=== PATIENT | female | born 1935 | race Caucasian/White ===

== ENCOUNTER 2016-06-08 09:02 | Outpatient (CLI) | payer MEDICARE | END 2016-06-08 09:03 | disposition home or self-care (01) | DX: I10 Essential (primary) hypertension (principal); E78.5 Hyperlipidemia, unspecified; E03.9 Hypothyroidism, unspecified; D64.9 Anemia, unspecified ==

== ENCOUNTER 2016-11-05 09:57 | Outpatient (CLI) | payer MEDICARE ==
[2016-11-05 18:30] LABS: CHOL/HDL RATIO 3.4 (<4.4); CHOLESTEROL 222 mg/dL; HDL CHOLESTEROL 65 mg/dL; LDL/HDL RATIO 2.3 (<4.4); TRIGLYCERIDES 47 mg/dL; VLDL CHOLESTEROL 9 mg/dL
== END 2016-11-05 09:58 | disposition home or self-care (01) ==
LOC: LAB.F 09:57
PROVIDERS: ATTEND Family Medicine
DX: E78.5 Hyperlipidemia, unspecified (principal)
CPT/HCPCS: 36415; 80061

== ENCOUNTER 2016-11-11 11:02 | Outpatient (CLI) | payer MEDICARE ==
--- NOTE | 2016-11-12 12:50 | Mammography Report ---
DIGITAL SCREENING MAMMOGRAM: 11/11/2016 CLINICAL INDICATION: A 81-year-old with history of late childbearing for screening. COMPARISON: 07/2014, 06/2012, 06/2011, 02/2010, 02/2009, 12/2007, 12/2006 TECHNIQUE: Routine CC and MLO projections were obtained of the breasts. FINDINGS: The breasts again demonstrate heterogeneously dense fibroglandular parenchyma bilaterally. Coarse, typically benign calcifications are present. No suspicious masses, clustered microcalcific ations, or regions of architectural distortion are identified. IMPRESSION: BENIGN FINDINGS. RECOMMENDATION: Routine annual screening unless otherwise clinically indicated. BIRADS CATEGORY 2 - BENIGN FINDINGS. STANDARD QUALIFYING STATEMENTS 1. This examination was reviewed with the aid of Computer-Aided Detection (CAD). 2. A negative or benign imaging report should not delay biopsy if clinically suspicious findings are present. Consider surgical consultation if warranted. More than 5% of cancers are not identified by i maging. 3. Dense breasts may obscure an underlying neoplasm. JOB #: [id number] EXT JOB #:[id number]
== END 2016-11-11 11:03 | disposition home or self-care (01) ==
LOC: DI.S 11:02
PROVIDERS: ATTEND Family Medicine
DX: Z12.31 Encounter for screening mammogram for malignant neoplasm of breast (principal)
CPT/HCPCS: 77067

== ENCOUNTER 2016-12-01 10:11 | Outpatient (CLI) | payer MEDICARE ==
--- NOTE | 2016-12-02 13:55 | DEXA Report ---
DEXA BONE MINERAL DENSITY SCAN: 12/02/2016 CLINICAL HISTORY: A 81-year-old postmenopausal female. TECHNIQUE: Dual energy x-ray absorptiometry (DXA) was performed on a [employer] system. Regions measured are the AP spine, femoral neck, and, if needed, forearm. COMPARISON: None. In accordance with the International Society for Clinical Densitometry (ISCD) guidelines, data from previous exams may be reanalyzed using current recommendations and techniques. This is done to allow a more accurate basis for comparison with the current study. FINDINGS: The data for the lumbar spine is as follows: REGION BMD (g/cm/cm) T-SCORE Z-SCORE L1 1.085 -0.4 1.8 L2 1.149 -0.4 1.8 L3 1.052 -1.2 0.9 L4 0.906 -2.4 -0.3 TOTAL 1.031 -1.2 0.9 NOTE: All evaluable vertebrae are used for classification. The data for the hip is as follows: REGION BMD (g/cm/cm) T-SCORE Z-SCORE Neck 0.666 -2.7 -0.3 TOTAL 0.654 -2.8 -0.6 NOTE: The femoral neck or total proximal femur, whichever is lowest, is used for classification. IMPRESSION: L1 THROUGH L4 BONE MINERAL DENSITY IS 1.031 GRAMS/CM2 FOR A T-SCORE OF -1.2. THIS IS COMPATIBLE WITH OSTEOPENIA ACCORDING TO THE WORLD HEALTH ORGANIZATION GUIDELINES. LEFT HIP TOTAL BONE MINERAL DENSITY IS 0.654 GRAMS/CM2 FOR A T-SCORE OF -2.8. THIS IS COMPATIBLE WITH OSTEOPOROSIS ACCORDING TO THE WORLD HEALTH ORGANIZATION GUIDELINES. LEFT FEMORAL NECK BONE MINERAL DENSITY IS 0.666 GRAMS/CM2 FOR A T-SCORE OF - 2.7. THIS IS COMPATIBLE WITH OSTEOPOROSIS ACCORDING TO THE WORLD HEALTH ORGANIZATION GUIDELINES. THE WHO CLASSIFICATION BASED ON THE INTERNATIONAL REFERENCE STANDARD IS OSTEOPOROSIS. THE PATIENT HAS SIGNIFICANT INCREASED FRACTURE RISK. RECOMMENDATION: Patients with diagnosis of osteoporosis or osteopenia should have regular bone mineral density assessment. For those eligible for Medicare, routine testing is allowed once every 2 years. Testing frequency can be increased for patients who have rapidly progressing disease or for those who are receiving medical therapy to restore bone mass. COMMENT: World Health Organization (WHO) definitions for osteoporosis and osteopenia: NORMAL BMD: T-score at -1.0 or higher, fracture risk is low. OSTEOPENIA BMD: T-score between -1.0 and -2.5, fracture risk is increased. OSTEOPOROSIS BMD: T-score at -2.5 or lower, fracture risk high. National Osteoporosis Foundation recommends: 1. Obtain adequate dietary calcium (at least 1200 mg per day) and vitamin D (400 -800 international units per day). 2. Participate, as appropriate, in regular weightbearing and muscle- strengthening exercise. 3. Avoid tobacco use and reduce alcohol and caffeine intake. 4. For more detailed information see the website at www.NOF.org. MTDD
== END 2016-12-01 10:12 | disposition home or self-care (01) ==
LOC: DI 10:11
PROVIDERS: ATTEND Family Medicine
DX: M81.0 Age-related osteoporosis without current pathological fracture (principal)
CPT/HCPCS: 77080

== ENCOUNTER 2017-01-11 14:04 | Outpatient (CLI) | payer MEDICARE ==
--- NOTE | 2017-01-11 15:45 | XRAY Report ---
BILATERAL HIPS AND PELVIS: 01/11/2017 CLINICAL INDICATION: Left worse than right pain. FINDINGS: Frontal view of the hips and pelvis and frogleg lateral views of the hips are compared to previous films of 09/04/2013. Severe right and mild left hip osteoarthritis is present. There is no evidence of acute fracture or d islocation. No radiopaque foreign body is seen in the soft tissues. IMPRESSION: SEVERE RIGHT AND MILD LEFT HIP OSTEOARTHRITIS. JOB #: [id number] EXT JOB #:[id number]
[2017-01-11 18:38] LABS: CHOL/HDL RATIO 3.3 (<4.4); CHOLESTEROL 219 mg/dL; HDL CHOLESTEROL 67 mg/dL; TRIGLYCERIDES 105 mg/dL; VLDL CHOLESTEROL 21 mg/dL
== END 2017-01-11 14:05 | disposition home or self-care (01) ==
LOC: DI.S 14:04
PROVIDERS: ATTEND Family Medicine
DX: M16.0 Bilateral primary osteoarthritis of hip (principal)
CPT/HCPCS: 36415; 73521; 80061; 84443

== ENCOUNTER 2017-08-13 10:48 | Outpatient (CLI) | payer MEDICARE ==
[2017-08-13 17:51] LABS: BILIRUBIN,URINE NEGATIVE (NEGATIVE); GLUCOSE, URINE (UA) NEGATIVE (NEGATIVE); KETONES,URINE (UA) NEGATIVE (NEGATIVE); LEUKOCYTE ESTERASE, URINE NEGATIVE (NEGATIVE); NITRITE,URINE NEGATIVE (NEGATIVE); OCCULT BLOOD,URINE NEGATIVE (NEGATIVE); PROTEIN,URINE NEGATIVE (NEGATIVE); UROBILINOGEN,URINE 0.2 (NORMAL) E.U./dL (NORMAL)
[2017-08-13 17:59] LABS: CLARITY,URINE CLEAR (CLEAR)
[2017-08-13 18:01] LABS: BASOPHILS % (AUTO) 1.7 %; EOSINOPHILS % (AUTO) 4.4 %; LYMPHOCYTES % (AUTO) 17.9 %; MEAN CORPUSCULAR HEMOGLOBIN 19.8 pg (27.0-31.0); MEAN CORPUSCULAR HGB CONC 29.1 g/dL (32.0-36.0); MEAN CORPUSCULAR VOLUME 67.9 fL (81.0-99.0); MEAN PLATELET VOLUME 6.9 fL (7.9-10.8); MONOCYTES % (AUTO) 8.6 %; NEUTROPHILS % (AUTO) 67.4 %; PLT - PLATELET COUNT 424 10^3/uL (130-450); RED BLOOD COUNT 2.68 10^6/uL (4.20-5.40); RED CELL DISTRIBUTION WIDTH 19.2 % (12.0-15.0); WHITE BLOOD COUNT 5.2 x10^3/uL (4.8-10.8)
[2017-08-13 18:09] LABS: BACTERIA,URINE Rare /HPF (None Seen); HGB - HEMOGLOBIN 5.3 g/dL (12.0-16.0); MUCUS,URINE Few Strands; RBC,URINE 0-5 /HPF (0-5); SQUAMOUS EPITHELIAL CELL,UR FEW Squamous (<= Few)
[2017-08-13 18:10] LABS: ABNORMAL LYMPHS % (MANUAL) 0 %
[2017-08-13 18:30] LABS: ALBUMIN 3.9 g/dL (3.2-5.5); ALBUMIN/GLOBULIN RATIO 1.4 (1.0-2.2); ALKALINE PHOSPHATASE 61 IU/L (42-121); ALT ALANINE AMINOTRANSFERASE 14 IU/L (10-60); AST ASPARTATE AMINOTRANSFERASE 20 IU/L (10-42); BILIRUBIN,TOTAL 0.3 mg/dL (0.2-1.0); BUN - BLOOD UREA NITROGEN 23 mg/dL (6-20); CALCIUM 9.1 mg/dL (8.5-10.3); CARBON DIOXIDE - CO2 27 mmol/L (21-32); CHLORIDE 104 mmol/L (101-111); CHOL/HDL RATIO 3.1 (<4.4); CHOLESTEROL 181 mg/dL; CREATININE 0.8 mg/dL (0.4-1.0); GFR - MDRD 69 (>89); GLUCOSE 94 mg/dL (70-100); HDL CHOLESTEROL 58 mg/dL; LDL CHOLESTEROL,CALCULATED 107 mg/dL; LDL/HDL RATIO 1.8 (<4.4); SODIUM 137 mmol/L (135-145); TOTAL PROTEIN 6.7 g/dL (6.7-8.2); VLDL CHOLESTEROL 16 mg/dL
[2017-08-13 18:53] LABS: BAND NEUTROPHILS % (MANUAL) 2 %; BASOPHILS # (MANUAL) 0.1 10^3/uL (0-0.1); BASOPHILS % (MANUAL) 2 %; EOSINOPHILS # (MANUAL) 0.3 10^3/uL (0-0.7); LYMPHOCYTES # (MANUAL) 0.7 10^3/uL (1.5-3.5); LYMPHOCYTES % (MANUAL) 13 %; MONOCYTES # (MANUAL) 0.4 10^3/uL (0.0-1.0); NEUTROPHILS # (MANUAL) 3.7 10^3/uL (1.5-6.6); NEUTROPHILS % (MANUAL) 69 %
[2017-08-13 18:54] LABS: DIFFERENTIAL COMMENT MANUAL DIFFERENTIAL; PLATELET ESTIMATE, MANUAL NORMAL (130-450,000) (NORMAL); PLATELET MORPHOLOGY 1+ GIANT PLATELETS (NORMAL)
== END 2017-08-13 10:49 | disposition home or self-care (01) ==
LOC: LAB.F 10:48
PROVIDERS: ATTEND Family Medicine
DX: R53.83 Other fatigue (principal); D64.9 Anemia, unspecified; E03.9 Hypothyroidism, unspecified; I10 Essential (primary) hypertension; E78.5 Hyperlipidemia, unspecified
CPT/HCPCS: 36415; 80053; 80061; 81001; 83721; 84443; 85025

== ENCOUNTER 2017-08-13 19:10 | Inpatient (IN) | payer MEDICARE ==
[2017-08-13 19:48] LABS: MEAN CORPUSCULAR HEMOGLOBIN 19.4 pg (27.0-31.0); MEAN CORPUSCULAR HGB CONC 28.7 g/dL (32.0-36.0); MEAN CORPUSCULAR VOLUME 67.8 fL (81.0-99.0); MEAN PLATELET VOLUME 6.4 fL (7.9-10.8); RED BLOOD COUNT 2.72 10^6/uL (4.20-5.40); RED CELL DISTRIBUTION WIDTH 19.3 % (12.0-15.0); WHITE BLOOD COUNT 5.4 x10^3/uL (4.8-10.8)
[2017-08-13 19:51] LABS: HGB - HEMOGLOBIN 5.3 g/dL (12.0-16.0)
[2017-08-13 19:57] LABS: ALBUMIN 3.8 g/dL (3.2-5.5); ALBUMIN/GLOBULIN RATIO 1.3 (1.0-2.2); BILIRUBIN,TOTAL 0.3 mg/dL (0.2-1.0); CALCIUM 8.8 mg/dL (8.5-10.3); CREATININE 0.7 mg/dL (0.4-1.0); TOTAL PROTEIN 6.8 g/dL (6.7-8.2)
[2017-08-13 20:00] LABS: INR 1.1 (0.8-1.2); PT - PROTHROMBIN TIME 11.9 secs (9.9-12.6)
--- NOTE | 2017-08-13 20:30 | ED Physician Documentation ---
History of Present Illness - Stated complaint Stated Complaint: BLOOD ISSUES - Chief complaint Chief Complaint: Neuro - History obtained from History obtained from: Patient - History of Present Illness Timing: How many weeks ago (2-3) Pain level max: 0 Pain level now: 0 Improved by: rest Worsened by: exertion - Additonal information Additional information: c/o few weeks of generalized weakness, fatigue, lightheadedness. Saw PMD for this yesterday, had blood drawn today and was called tonight and advised to go to ED due to anemia. Review of Systems Constitutional: reports: Fatigue. denies: Fever, Chills, Sweats Eyes: reports: Reviewed and negative Ears: reports: Reviewed and negative Nose: reports: Reviewed and negative Throat: reports: Reviewed and negative Cardiac: reports: Reviewed and negative Respiratory: reports: Reviewed and negative GI: reports: Reviewed and negative. denies: Hematemesis, Bloody / black stool Skin: reports: Reviewed and negative Musculoskeletal: reports: Reviewed and negative Neurologic: reports: Generalized weakness. 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 - Present Medications Home Medications: Ambulatory Orders Medication Instructions Recorded Confirmed Calcium Carb/Magnesium Ox,Carb 2 tab PO DAILY 06/23/13 08/14/17 [Doroteo-Mag Tablet Chewable] Cholecalciferol (Vitamin D3) [D3 5,000 unit PO DAILY 06/23/13 08/14/17 Dots] Cyanocobalamin (Vitamin B-12) 500 mcg SL QAM 06/23/13 08/14/17 [Vitamin B-12] Multivitamin [Multi-Vitamin Daily] 3 tab PO QAM 06/23/13 08/14/17 [place]-3 Fatty Acids [[place]-3] 2,000 mg PO QAM 06/23/13 08/14/17 Resveratrol 100 mg PO QAM 06/23/13 08/14/17 Thyroid,Pork [Nature-Throid] 16.25 mg PO QAM 06/23/13 08/14/17 Ubidecarenone [Co Q-10] 10 mg PO DAILY 06/23/13 08/14/17 Ferrous Sulfate 325 mg PO DAILY #15 tablet 08/14/17 Lactobacillus Acidophilus 1 each PO DAILY 08/14/17 08/14/17 [Acidophilus] - Allergies Allergies/Adverse Reactions: Allergies Allergy/AdvReac Type Severity Reaction Status Date / Time No Known Drug Allergies Allergy Verified 08/13/17 19:20 - Social History Does the pt smoke?: No Smoking Status: Never smoker Does the pt drink ETOH?: Yes Does the pt have substance abuse?: No - POLST Patient has POLST: No PD ED PE NORMAL - Vitals Vital signs reviewed: Yes - General General: Alert and oriented X 3, No acute distress, Well developed/nourished - HEENT HEENT: PERRL, EOMI, Other (pale conjunctiva bilaterally) - Neck Neck: Supple, no meningeal sign - Cardiac Cardiac: RRR, No murmur, No gallop, No rub - Respiratory Respiratory: No respiratory distress, Clear bilaterally - Abdomen Abdomen: Soft, Non tender - Back Back: No CVA TTP - Derm Derm: Normal color, Warm and dry - Extremities Extremities: No edema - Neuro Neuro: Alert and oriented X 3 PD ED PE EXPANDED - Rectal Rectal: Heme Occult Neg - QC+, Hide And Skin Classer present Results - Vitals Vitals: Oxygen O2 Source Room air - Labs Labs: Laboratory Tests 08/13/17 08/13/17 08/13/17 19:30 19:30 19:30 WBC 5.4 RBC 2.72 L Hgb 5.3 L* Hct 18.4 L* MCV 67.8 L MCH 19.4 L MCHC 28.7 L RDW 19.3 H Plt Count 434 MPV 6.4 L PT 11.9 INR 1.1 APTT 24.6 L Sodium Potassium Chloride Carbon Dioxide Anion Gap BUN Creatinine Estimated GFR (MDRD) Glucose Calcium Iron TIBC % Saturation Transferrin Total Bilirubin AST ALT Alkaline Phosphatase Total Protein Albumin Globulin Albumin/Globulin Ratio Lipase Vitamin B12 Folate Blood Type B POSITIVE Antibody Screen NEGATIVE Crossmatch IS Only 08/13/17 08/13/17 08/13/17 19:30 19:30 19:30 WBC RBC Hgb Hct MCV MCH MCHC RDW Plt Count MPV PT INR APTT Sodium 136 Potassium 3.7 Chloride 103 Carbon Dioxide 27 Anion Gap 6.0 BUN 23 H Creatinine 0.7 Estimated GFR (MDRD) 81 L Glucose 117 H Calcium 8.8 Iron 8 L TIBC 553 H % Saturation 1 L Transferrin 395 H Total Bilirubin 0.3 AST 19 ALT 14 Alkaline Phosphatase 60 Total Protein 6.8 Albumin 3.8 Globulin 3.0 Albumin/Globulin Ratio 1.3 Lipase 65 H Vitamin B12 Folate Blood Type Cancelled Antibody Screen Cancelled Crossmatch IS Only See Detail 08/13/17 19:30 WBC RBC Hgb Hct MCV MCH MCHC RDW Plt Count MPV PT INR APTT Sodium Potassium Chloride Carbon Dioxide Anion Gap BUN Creatinine Estimated GFR (MDRD) Glucose Calcium Iron TIBC % Saturation Transferrin Total Bilirubin AST ALT Alkaline Phosphatase Total Protein Albumin Globulin Albumin/Globulin Ratio Lipase Vitamin B12 636 Folate 16.48 Blood Type Antibody Screen Crossmatch IS Only PD MEDICAL DECISION MAKING - ED course Complexity details: reviewed old records, reviewed results, re-evaluated patient , considered differential, d/w patient, d/w family ED course: symptomatic severe anemia, 2 units PRBC transfusion ordered and admitted to hospitalist service Departure - Departure Disposition: 66 [facility] DC/Xfer Clinical Impression: Anemia Condition: Stable Discharge Date/Time: 08/13/17 21:45
[2017-08-13] MEDS ORDERED: SODIUM CHLORIDE FLUSH 0.9% 10 ML SYRINGE IVP PRN (21:07)
[2017-08-13] MEDS ORDERED: TEMAZEPAM 15 MG CAPSULE PO PRN (21:16)
[2017-08-13] MEDS ORDERED: PROCHLORPERAZINE 10 MG/2 ML VIAL IVP PRN (21:16)
[2017-08-13] MEDS ORDERED: oxyCODONE 5 MG TABLET PO PRN (21:16)
[2017-08-13 22:07] LABS: % IRON SATURATION 1 % (20-50); IRON 8 ug/dL (28-170); TOTAL IRON BINDING CAPACITY 553 ug/dL (250-450); TRANSFERRIN 395 mg/dL (192-382)
[2017-08-13 22:26] LABS: FOLATE 16.48 ng/mL (5.90 - >24.8)
--- NOTE | 2017-08-13 22:51 | HISTORY & PHYSICAL EXAMINATION ---
Chief Complaint - Chief Complaint Chief Complaint: Generalized weakness History of Present Illness - Admitted From Admitted From:: home - History Obtained From Records Reviewed: yes History obtained from: Patient, ED physician Exam Limitations: none noted - History of Present Illness HPI Comment/Other: Mrs. Kari Hill is a very pleasant 82-year-old female with a history of feeling weak over the last several days. This continued until today when she came into the [facility] emergency department and was found to have hemoglobin of 5.3. The patient relates she had a similar episode about 4 years ago and was eventually found to have a healing gastric ulcer. At that time she also was guaiac negative and she is during this admission. The patient says that for years ago she was on iron supplements for a while after her hospitalization but stopped within a year. She will be admitted to a medical bed, transfuse 2 units and reassessed. We will also try to find the cause of her anemia. 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 - Substance History Use: Uses substance without health or social issues: Alcohol Abuse: Recurrent use of substance despite neg consequences: NONE Dependence: Experiences withdrawal or developed tolerances: NONE - POLST Patient has POLST: No POLST Status: DNR Meds/Allgy - Home Medications Home Medications: Ambulatory Orders Medication Instructions Recorded Confirmed Acute Viratex 0.5 dis.syr PO TID 06/23/13 06/23/13 Ascorbic Acid [Vitamin C] 100 mg PO QAM 06/23/13 06/23/13 Astaxanthin 4 mg PO DAILY 06/23/13 06/23/13 Calcium Carb/Magnesium Ox,Carb 1 tab PO BID 06/23/13 06/23/13 [Doroteo-Mag Tablet Chewable] Cholecalciferol (Vitamin D3) [D3 5,000 unit PO 06/23/13 06/23/13 Dots] Cranberry 2 PO BID 06/23/13 06/23/13 Cyanocobalamin (Vitamin B-12) 1 tab SL QAM 06/23/13 06/23/13 [Vitamin B-12] Ferrasorb 1 PO BID 06/23/13 06/23/13 Methylsulfonylmethane [MSM] 1,000 mg PO DAILY 06/23/13 06/23/13 Multivitamin [Multi-Vitamin Daily] 3 tab PO QAM 06/23/13 06/23/13 [place]arth[place]-3 Fatty Acids [Karthaus-3] 2 cap PO QAM 06/23/13 06/23/13 Phyto B 10 gm PO HS 06/23/13 06/23/13 [place] 1 PO BID 06/23/13 06/23/13 Resveratrol PO QAM 06/23/13 06/23/13 Saccharomyces Boulardii [Florastor] mg PO QAM 06/23/13 06/23/13 Thyroid,Pork [Nature-Throid] 32.5 mg PO QAM 06/23/13 06/23/13 Ubidecarenone [Co Q-10] mg PO DAILY 06/23/13 06/23/13 - Allergies Allergies/Adverse Reactions: Allergies Allergy/AdvReac Type Severity Reaction Status Date / Time No Known Drug Allergies Allergy Verified 08/13/17 19:20 Review of Systems - Constitutional Constitutional: reports: Fatigue, Malaise. denies: Fever, Chills, Weakness, Poor appetite - Eyes Eyes: denies: Pain, Irritation, Amaurosis, Blurred vision, Dipolpia - Ears, Nose & Throat Ears, Nose & Throat: denies: Ear pain, Hearing loss, Hearing aids, Tinnitus, Vertigo, Nasal pain, Nasal discharge, Nosebleeds - Cardiovascular Cariovascular: denies: Irregular heart rate, Palpitations, Chest pain, Edema - Respiratory Respiratory: reports: SOB with exertion. denies: Cough, Sputum production, Wheezing, Snoring, Hemoptysis, Orthopnea, SOB at rest - Gastrointestinal Gastrointestinal: denies: Abdominal pain, Abdominal distention, Constipation, Diarrhea, Change in bowel habits, Rectal bleeding, Black stools, Bloody stools, Nausea, Vomiting - Genitourinary Genitourinary: denies: Dysuria, Frequency, Urgency, Hematuria - Musculoskeletal Musculoskeletal: denies: Muscle pain, Back pain, Muscle aches, Stiffness - Integumentary Integumentary: denies: Rash, Pruritis, Lesions, Dryness - Neurological Neurological: denies: General weakness, Focal weakness, Headache, Dizziness - Psychiatric Psychiatric: denies: Depression, Anxiety, Suicidal, Delusions, Hallucinations, Homicidal - Endocrine Endocrine: denies: Polyuria, Polydypsia, Polyphagia - Hematologic/Lymphatic Hematologic/Lymphatic: denies: Anemia, Bruising, Petechiae, Blood clots, Lymphadenopathy - All Other Systems All Other Systems: reports: Reviewed and negative Exam - Vital Signs Reviewed Vital Signs: Yes Vital Signs: Vital Signs x48h Temp Pulse Pulse Resp BP BP Pulse Ox 08/13/17 21:55 36.6 C 81 20 159/63 H 100 08/13/17 21:44 36.4 C L 68 12 164/75 H 97 08/13/17 21:11 68 11 L 174/84 H 100 - Physical Exam General Appearance: positive: No acute distress, Alert Eyes Bilateral: positive: Normal inspection, PERRL, EOMI, No lid inflammation, Conjunctivae nml, No scleral icterus ENT: positive: ENT inspection nml, Pharynx nml, No signs of dehydration Neck: positive: Nml inspection, Thyroid nml, No JVD, Trachea midline. negative : Thyromegaly Respiratory: positive: Chest non-tender, No respiratory distress, Breath sounds nml. negative: Wheezes, Rales, Rhonchi Cardiovascular: positive: Regular rate & rhythm, No murmur, No gallop Peripheral Pulses: positive: 1+ Abdomen: positive: Non-tender, No organomegaly, Nml bowel sounds, No distention. negative: Guarding, Rebound Back: positive: Nml inspection. negative: CVA tenderness (R), CVA tenderness (L ) Skin: positive: Color nml, No rash, Warm, Dry. negative: Cyanosis Extremities: positive: Non-tender, Full ROM, Nml appearance, No pedal edema Neurologic/Psychiatric: positive: Oriented x3, CN's nml (2-12), Motor nml, Sensation nml, Mood/affect nml Conclusion/Plan - Problem List (1) Microcytic anemia Conclusion/Plan: The patient's anemia is severe and severely microcytic with hemoglobin of 5.3, hematocrit of 18.4, and an MCV of 67.8. The patient's red blood cells are so small that thalassemia must be considered however given her red blood cell count of 2.72 it is doubtful. I have ordered iron studies and folate level and B12 level which were ordered in the emergency department have come back normal. This is somewhat surprising as the patient's RDW is 19.3. We will admit her to a medical bed, transfuse her 2 units of packed red blood cells and recheck her hematocrit and hemoglobin levels. We will transfuse her up to 10 and try to find the cause of her severe anemia. During her previous bout of severe anemia she had a full workup and was found to be iron deficient. Guaiacs at that time were also negative. (2) Chronic back pain greater than 3 months duration Conclusion/Plan: Patient has responded very well to physical therapy, I will order physical therapy to evaluate and treat while she is inpatient. - Lab Results Lab results reviewed: Yes Fish Bones: 08/13/17 19:30 08/13/17 19:30 Core Measures - Anticipated LOS I expect patient to be DC'd or transferred within 96 hours.: Yes - DVT/VTE - Prophylaxis VTE/DVT Device ordered at admit?: Yes
[2017-08-14] MEDS: SODIUM CHLORIDE FLUSH 0.9% 10 ML SYRINGE IVP SCH ×2 (04:45→10:32)
[2017-08-14 07:27] LABS: HGB - HEMOGLOBIN 8.8 g/dL (12.0-16.0); MEAN CORPUSCULAR HEMOGLOBIN 23.7 pg (27.0-31.0); MEAN CORPUSCULAR HGB CONC 32.7 g/dL (32.0-36.0); MEAN CORPUSCULAR VOLUME 72.6 fL (81.0-99.0); MEAN PLATELET VOLUME 6.2 fL (7.9-10.8); RED BLOOD COUNT 3.69 10^6/uL (4.20-5.40); RED CELL DISTRIBUTION WIDTH 21.3 % (12.0-15.0); WHITE BLOOD COUNT 5.6 x10^3/uL (4.8-10.8)
[2017-08-14] MEDS ORDERED: FERROUS SULFATE 325 MG TABLET PO SCH ×2 (08:00→09:00)
[2017-08-14] MEDS ORDERED: cloNIDine 0.1 MG TABLET PO PRN (08:05)
[2017-08-14 08:48] LABS: THYROID STIMULATING HORMONE 2.67 uIU/mL (0.34-5.60)
[2017-08-14 08:50] LABS: FREE T4 (FREE THYROXINE) 0.67 ng/dL (0.58-1.64)
[2017-08-14] MEDS ORDERED: POLYETHYLENE GLYCOL 3350 17 GM PACKET PO SCH (09:00)
[2017-08-14] MEDS ORDERED: FAMOTIDINE 20 MG TABLET PO SCH (09:00)
[2017-08-14] MEDS ORDERED: FERRIC GLUCONATE 62.5 MG/5 ML VIAL IVP ONE (09:03)
[2017-08-14] MEDS ORDERED: FERRIC GLUCONATE 125 MG in SODIUM CHLORIDE 0.9% 100ML 100 ML IV ONE (10:00)
[2017-08-14] MEDS ORDERED: PANTOPRAZOLE 40 MG VIAL IVP SCH (14:00)
[2017-08-14 14:17] LABS: HGB - HEMOGLOBIN 9.3 g/dL (12.0-16.0)
--- NOTE | 2017-08-14 14:39 | Discharge Plan ---
Discharge Plan Disposition: Home, Self Care Condition: Stable Prescriptions: Ferrous Sulfate 325 mg PO DAILY #15 tablet Diet: Regular Activity Restrictions: Activity as Tolerated Shower Restrictions: No Weight Bearing: Full Weight Instruction Topics: Anemia Iron Deficiency Ch, Iron tablets capsules extended- release tablets Additional Instructions or Follow Up instructions: May follow up PCP in one week. Should symptoms return or worsen, may present to ER or call 911 for help. No Smoking: If you smoke, Please STOP! Call for help. Follow-up with: SERGE CANALES MD [Primary Care Provider] -
--- NOTE | 2017-08-14 14:45 | DISCHARGE SUMMARY ---
Discharge Summary Discharge Date: 08/14/17 Discharging Provider: [place] Primary Care Provider: Dr. Riggins Condition at Discharge: Stable Discharge Disposition: 01 Home, Self Care Discharge Facility Name: home - DIAGNOSES Admission Diagnoses: (1) Microcytic anemia/iron deficiency (2) Chronic back pain greater than 3 months duration Discharge Diagnoses with Status of Each Condition: (1) Microcytic anemia/iron deficiency pt was transfused two unit of blood. after transfusion. pt's HGB is continuing stable pt was found iron deficiency. pt was prescribed IVF of Ferrlecit. pt is prescribed ferrous sulf for d/c home and continue management by PCP pt's Guaiae test is negative for blood (2) Chronic back pain greater than 3 months duration stable, continue home meds The nurse did not report the last pt's BP measure, before d/c. - HPI History of Present Illness: refer from Dr. Huber's HPI on pt as the following: Mrs. Kari Hill is a very pleasant 82-year-old female with a history of feeling weak over the last several days. This continued until today when she came into the [facility] emergency department and was found to have hemoglobin of 5.3. The patient relates she had a similar episode about 4 years ago and was eventually found to have a healing gastric ulcer. At that time she also was guaiac negative and she is during this admission. The patient says that for years ago she was on iron supplements for a while after her hospitalization but stopped within a year. She will be admitted to a medical bed, transfuse 2 units and reassessed. We will also try to find the cause of her anemia. - ALLERGIES Allergies/Adverse Reactions: Allergies Allergy/AdvReac Type Severity Reaction Status Date / Time No Known Drug Allergies Allergy Verified 08/13/17 19:20 - MEDICATIONS Home Medications: Ambulatory Orders Medication Instructions Recorded Confirmed Calcium Carb/Magnesium Ox,Carb 2 tab PO DAILY 06/23/13 08/14/17 [Doroteo-Mag Tablet Chewable] Cholecalciferol (Vitamin D3) [D3 5,000 unit PO DAILY 06/23/13 08/14/17 Dots] Cyanocobalamin (Vitamin B-12) 500 mcg SL QAM 06/23/13 08/14/17 [Vitamin B-12] Multivitamin [Multi-Vitamin Daily] 3 tab PO QAM 06/23/13 08/14/17 [place]-3 Fatty Acids [Kennedy-3] 2,000 mg PO QAM 06/23/13 08/14/17 Resveratrol 100 mg PO QAM 06/23/13 08/14/17 Thyroid,Pork [Nature-Throid] 16.25 mg PO QAM 06/23/13 08/14/17 Ubidecarenone [Co Q-10] 10 mg PO DAILY 06/23/13 08/14/17 Ferrous Sulfate 325 mg PO DAILY #15 tablet 08/14/17 Lactobacillus Acidophilus 1 each PO DAILY 08/14/17 08/14/17 [Acidophilus] - PHYSICAL EXAM AT DISCHARGE General Appearance: positive: No acute distress, Alert. negative: Lethargic Eyes Bilateral: positive: Normal inspection, PERRL, No lid inflammation, Conjunctivae nml ENT: positive: ENT inspection nml, Pharynx nml, No signs of dehydration. negative: Purulent nasal drainage, Pharyngeal erythema, Oral lesions Neck: positive: Nml inspection, Thyroid nml, No JVD, Trachea midline. negative : Thyromegaly, Lymphadenopathy (R), Lymphadenopathy (L), Stiff neck, Carotid bruit, Swelling/bruising, Tracheal deviation Respiratory: positive: Chest non-tender, No respiratory distress, Breath sounds nml. negative: Wheezes, Rales, Rhonchi Cardiovascular: positive: Regular rate & rhythm, No murmur, No gallop. negative : Irregularly irregular, Extrasystoles, Tachycardia, Bradycardia, JVD present, Systolic murmur, Diastolic murmur Peripheral Pulses: positive: 2+ Abdomen: positive: Non-tender, No organomegaly, Nml bowel sounds, No distention. negative: Tenderness, Guarding, Rebound Back: positive: Nml inspection. negative: CVA tenderness (R), CVA tenderness (L ) Skin: positive: Color nml, No rash, Warm, Dry. negative: Cyanosis, Diaphoresis , Pallor Extremities: positive: Non-tender, Full ROM, Nml appearance. negative: Calf tenderness, Joint swelling, Stefany's sign/cords Neurologic/Psychiatric: positive: Oriented x3, Sensation nml, Mood/affect nml. negative: Weakness, Sensory loss, Facial droop, Slurred/abnml speech, Depressed mood/affect - LABS Result Diagrams: 08/14/17 14:03 08/13/17 19:30 - FOLLOW UP Follow Up: May see PCP in one week, follow up medication schedule. Should symptoms return or worsen, may present to ER or call 911 for help. - TIME SPENT Time Spent in Discharge (Minutes): 40
[2017-08-14 15:29] VITALS: BP 173/66
== END 2017-08-14 16:15 | disposition home or self-care (01) | DRG 812 ==
LOC: ED 19:10 → MS3 21:07
PROVIDERS: ADMIT Hospitalist; ATTEND Nurse Practitioner Gerontology
PROC: 30233N1 Transfusion of Nonautologous Red Blood Cells into Peripheral Vein, Percutaneous Approach (ICD-10-PCS; principal; 2017-08-13)
DX: D64.9 Anemia, unspecified (principal); D50.9 Iron deficiency anemia, unspecified; M54.9 Dorsalgia, unspecified; G89.29 Other chronic pain; I10 Essential (primary) hypertension; E03.9 Hypothyroidism, unspecified; M81.0 Age-related osteoporosis without current pathological fracture; Z87.11 Personal history of peptic ulcer disease; E78.5 Hyperlipidemia, unspecified
CPT/HCPCS: 36415; 80053; 80061; 81001; 82270; 82607; 82746; 83540; 83690; 83721; 84439; 84443; 84466; 85014; 85018; 85025; 85610; 85730; 86850; 86900; 86901; 86920; 99284

== ENCOUNTER 2017-09-02 10:23 | Outpatient (CLI) | payer MEDICARE ==
[2017-09-02 18:22] LABS: BASOPHILS # (AUTO) 0.1 10^3/uL (0.0-0.1); BASOPHILS % (AUTO) 0.9 %; EOSINOPHILS # (AUTO) 0.1 10^3/uL (0.0-0.7); EOSINOPHILS % (AUTO) 1.9 %; HGB - HEMOGLOBIN 11.1 g/dL (12.0-16.0); LYMPHOCYTES # (AUTO) 1.1 10^3/uL (1.5-3.5); LYMPHOCYTES % (AUTO) 17.8 %; MEAN CORPUSCULAR HEMOGLOBIN 24.5 pg (27.0-31.0); MEAN CORPUSCULAR HGB CONC 31.1 g/dL (32.0-36.0); MEAN CORPUSCULAR VOLUME 78.7 fL (81.0-99.0); MEAN PLATELET VOLUME 7.6 fL (7.9-10.8); MONOCYTES # (AUTO) 0.5 10^3/uL (0.0-1.0); MONOCYTES % (AUTO) 7.2 %; NEUTROPHILS # (AUTO) 4.6 10^3/uL (1.5-6.6); NEUTROPHILS % (AUTO) 72.2 %; PLT - PLATELET COUNT 400 10^3/uL (130-450); RED BLOOD COUNT 4.52 10^6/uL (4.20-5.40); WHITE BLOOD COUNT 6.4 x10^3/uL (4.8-10.8)
[2017-09-02 19:56] LABS: PLATELET ESTIMATE, MANUAL NORMAL (130-450,000) (NORMAL); PLATELET MORPHOLOGY NORMAL APPEARANCE (NORMAL)
== END 2017-09-02 10:24 | disposition home or self-care (01) ==
LOC: LAB.F 10:23
PROVIDERS: ATTEND Nurse Practitioner Family
DX: K92.2 Gastrointestinal hemorrhage, unspecified (principal); D64.9 Anemia, unspecified
CPT/HCPCS: 36415; 85025

== ENCOUNTER 2017-09-22 13:36 | Outpatient (CLI) | payer MEDICARE ==
[2017-09-22 17:40] LABS: BASOPHILS # (AUTO) 0.1 10^3/uL (0.0-0.1); EOSINOPHILS # (AUTO) 0.2 10^3/uL (0.0-0.7); EOSINOPHILS % (AUTO) 2.6 %; HGB - HEMOGLOBIN 11.3 g/dL (12.0-16.0); LYMPHOCYTES % (AUTO) 14.8 %; MEAN CORPUSCULAR HEMOGLOBIN 25.1 pg (27.0-31.0); MEAN CORPUSCULAR HGB CONC 31.5 g/dL (32.0-36.0); MEAN CORPUSCULAR VOLUME 79.5 fL (81.0-99.0); MEAN PLATELET VOLUME 7.3 fL (7.9-10.8); MONOCYTES # (AUTO) 0.5 10^3/uL (0.0-1.0); MONOCYTES % (AUTO) 7.8 %; NEUTROPHILS % (AUTO) 73.8 %; PLT - PLATELET COUNT 300 10^3/uL (130-450); RED BLOOD COUNT 4.51 10^6/uL (4.20-5.40); RED CELL DISTRIBUTION WIDTH 28.5 % (12.0-15.0); WHITE BLOOD COUNT 6.7 x10^3/uL (4.8-10.8)
[2017-09-22 18:05] LABS: PLATELET ESTIMATE, MANUAL NORMAL (130-450,000) (NORMAL); PLATELET MORPHOLOGY NORMAL APPEARANCE (NORMAL)
[2017-09-22 18:16] LABS: % IRON SATURATION 23 % (20-50); IRON 91 ug/dL (28-170); TOTAL IRON BINDING CAPACITY 400 ug/dL (250-450); TRANSFERRIN 286 mg/dL (192-382)
== END 2017-09-22 13:37 | disposition home or self-care (01) ==
LOC: LAB.F 13:36
PROVIDERS: ATTEND Nurse Practitioner Family
DX: D50.0 Iron deficiency anemia secondary to blood loss (chronic) (principal)
CPT/HCPCS: 36415; 83540; 84466; 85025

== ENCOUNTER 2018-01-31 12:04 | Day surgery (SDC) | payer MEDICARE ==
[2018-01-31] MEDS ORDERED: LACTATED RINGERS 1,000 ML IV ONE ×3 (12:16→14:45)
[2018-01-31] MEDS ORDERED: LIDO GARGLE 30 ML BOTTLE ONE (13:50)
[2018-01-31] MEDS ORDERED: LIDO GARGLE 30 ML BOTTLE TOP ONE (14:04)
[2018-01-31] MEDS ORDERED: MIDAZOLAM 2 MG/2 ML VIAL IVP ONE (15:00)
[2018-01-31] MEDS ORDERED: fentaNYL 100 MCG/2 ML VIAL IVP ONE (15:00)
[2018-01-31 15:38] VITALS: BP 138/74
== END 2018-01-31 12:05 | disposition home or self-care (01) ==
LOC: SDS 12:04
PROVIDERS: ATTEND Surgery
PROC: 0DJD8ZZ Inspection of Lower Intestinal Tract, Via Natural or Artificial Opening Endoscopic (ICD-10-PCS; principal; 2018-01-31 12:45)
PROC: 0DJ08ZZ Inspection of Upper Intestinal Tract, Via Natural or Artificial Opening Endoscopic (ICD-10-PCS; 2018-01-31 12:45)
DX: D62 Acute posthemorrhagic anemia (principal); K57.30 Diverticulosis of large intestine without perforation or abscess without bleeding; K64.8 Other hemorrhoids; K44.9 Diaphragmatic hernia without obstruction or gangrene; I10 Essential (primary) hypertension; K21.9 Gastro-esophageal reflux disease without esophagitis; K22.8 Other specified diseases of esophagus
CPT/HCPCS: 43235; 45378; A9270; J7120

== ENCOUNTER 2018-02-03 14:25 | Outpatient (CLI) | payer MEDICARE | END 2018-02-03 14:26 | disposition critical access hospital (66) | LOC: EMS 14:25 | PROVIDERS: ATTEND Surgery | DX: S09.90XA Unspecified injury of head, initial encounter (principal); W01.198A Fall on same level from slipping, tripping and stumbling with subsequent striking against other object, initial encounter; Y93.01 Activity, walking, marching and hiking; Y92.512 Supermarket, store or market as the place of occurrence of the external cause | CPT/HCPCS: A0425; A0427 ==

== ENCOUNTER 2018-02-03 15:04 | Emergency (ER) | payer MEDICARE ==
--- NOTE | 2018-02-03 16:57 | ED Physician Documentation ---
PD HPI HEAD INJURY - Stated complaint Stated Complaint: GLF - Chief complaint Chief Complaint: Trauma Hd/Nk - Additional information Additional information: 83-year-old female presents the emergency department for evaluation of a head injury which occurred just prior to arrival. The patient was about to have lunch with her . The patient unfortunately lost her balance secondary to a black lab which caused her to fall. The patient fell backwards striking her head and reports a loss of consciousness. The patient denies injury to her torso, upper extremities or lower extremities. Presently the patient reports a hematoma on the back of her head and a headache. The patient also reports feeling spacey. The patient denies any confusion, focal motor weakness, focal sensory changes, vision changes and the patient denies any anticoagulant usage. Symptoms are described as moderate. No other associated symptoms Review of Systems Constitutional: denies: Fever Eyes: denies: Loss of vision Ears: denies: Ear pain Nose: denies: Rhinorrhea / runny nose Throat: denies: Sore throat Cardiac: denies: Chest pain / pressure GI: denies: Abdominal Pain : denies: Dysuria Skin: denies: Laceration (s) Musculoskeletal: reports: Neck pain Neurologic: reports: Headache, Head injury. denies: Focal weakness, Numbness, Difficulty speaking, Syncope, Altered mental status Immunocompromised: denies: Chemotherapy PD PAST MEDICAL HISTORY - Past Medical History Past Medical History: Yes Cardiovascular: None Respiratory: None Endocrine/Autoimmune: HyPOthyroidism GI: Other : Incontinence HEENT: None Psych: None Musculoskeletal: None Derm: Psoriasis - Past Surgical History Past Surgical History: Yes /DIRECTOR INFORMATION: Hysterectomy - Present Medications Home Medications: Ambulatory Orders Medication Instructions Recorded Confirmed Calcium Carb/Magnesium Ox,Carb 2 tab PO DAILY 06/23/13 08/14/17 [Doroteo-Mag Tablet Chewable] Cholecalciferol (Vitamin D3) [D3 5,000 unit PO DAILY 06/23/13 08/14/17 Dots] Cyanocobalamin (Vitamin B-12) 500 mcg SL QAM 06/23/13 08/14/17 [Vitamin B-12] Multivitamin [Multi-Vitamin Daily] 3 tab PO QAM 06/23/13 08/14/17 Hanna-3 Fatty Acids [Hanna-3] 2,000 mg PO QAM 06/23/13 08/14/17 Resveratrol 100 mg PO QAM 06/23/13 08/14/17 Thyroid,Pork [Nature-Throid] 16.25 mg PO QAM 06/23/13 08/14/17 Ubidecarenone [Co Q-10] 10 mg PO DAILY 06/23/13 08/14/17 Ferrous Sulfate 325 mg PO DAILY #15 tablet 08/14/17 Lactobacillus Acidophilus 1 each PO DAILY 08/14/17 08/14/17 [Acidophilus] - Allergies Allergies/Adverse Reactions: Allergies Allergy/AdvReac Type Severity Reaction Status Date / Time No Known Drug Allergies Allergy Verified 01/31/18 12:19 - Social History Does the pt smoke?: No Smoking Status: Never smoker Does the pt drink ETOH?: Yes Does the pt have substance abuse?: No - POLST Patient has POLST: No POLST Status: DNR PD ED PE NORMAL - General General: Alert and oriented X 3, No acute distress - HEENT HEENT: PERRL, EOMI, Ears normal, Moist mucous membranes - Neck Neck: No: No bony TTP (Tenderness in the neck) - Cardiac Cardiac: RRR, Strong equal pulses - Respiratory Respiratory: No respiratory distress, Clear bilaterally - Abdomen Abdomen: Soft, Non tender - Derm Derm: Normal color - Extremities Extremities: No deformity, No tenderness to palpate, Normal ROM s pain - Neuro Neuro: Alert and oriented X 3, bingo caller 2-12 intact, No motor deficit, Normal speech Eye Opening: Spontaneous Motor: Obeys Commands Verbal: Oriented GCS Score: 15 - Psych Psych: Normal mood PD ED PE EXPANDED - HEENT HEENT Visual: 1 - tenderness (The patient has a large contusion, there is no laceration or abrasion and no active bleeding. The patient is quite tender to palpation in this area) Results - Vitals Vitals: Vital Signs - 24 hr 02/03/18 02/03/18 02/03/18 15:11 18:05 18:25 Temperature 36.0 C L Heart Rate 59 L 52 L 78 Respiratory 18 17 16 Rate Blood Pressure 186/93 H 161/90 H 161/90 H O2 Saturation 96 98 98 Oxygen O2 Source [With Activity] Room air O2 Source Room air - Rads (name of study) CT head/neck Radiology: Final report received (1. No acute intracranial abnormality s uggested. 2. 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 Consider further evaluation with pituitary protocol MRI. 3. Right posterior lateral scalp contusion/laceration. Skull intact. ) PD MEDICAL DECISION MAKING - ED course ED course: Reevaluation the patient resting comfortably. I discussed with her the incidental finding seen on CT scan and the recommendation for an outpatient MRI by the radiologist. The patient denies any acute vision abnormalities. I also discussed the case with the interpreting radiologist from [facility], he does not recommend a urgent MRI today and feels that this can be further worked up as an outpatient. The patient understands the findings and the necessity for outpatient MRI. The patient will follow up with primary care. I discussed with the patient the natural course of a concussion. Presently, the patient appears appropriate for discharge home and ongoing outpatient management. Discussed warning signs and recommended returning to the emergency department immediately for any worsening or concerns. - Sepsis Event Vital Signs: Vital Signs - 24 hr 02/03/18 02/03/18 02/03/18 15:11 18:05 18:25 Temperature 36.0 C L Heart Rate 59 L 52 L 78 Respiratory 18 17 16 Rate Blood Pressure 186/93 H 161/90 H 161/90 H O2 Saturation 96 98 98 Oxygen O2 Source [With Activity] Room air O2 Source Room air Departure - Departure Disposition: 01 Home, Self Care Clinical Impression: Abnormal head CT Closed head injury Qualifiers: Encounter type: initial encounter Qualified Code(s): S09.90XA - Unspecified injury of head, initial encounter Condition: Good Instructions: Concussion, ED Concussion Follow-Up: Nelida Holcomb ARNP [Primary Care Provider] - Within 3 Days (Please ask your primary care there is practitioner to arrange for an outpatient MRI to further evaluate this abnormality seen on CT scan. Please also ask for a referral to neurosurgery) Comments: These return to the emergency department immediately for worsening symptoms or any concerns Discharge Date/Time: 02/03/18 18:27
--- NOTE | 2018-02-03 17:04 | CT Report ---
Reason: head injury Procedure Date: 02/03/2018 Accession Number: [id number] / [id number] Procedure: CT - Head W/O CPT Code: FULL RESULT: EXAM: CT HEAD EXAM DATE: 02/03/2018 04:36 PM. CLINICAL HISTORY: Acute pain due to trauma. COMPARISON: MRI THORACIC SPINE W/O CONT 07/15/2011 3:34 PM. TECHNIQUE: Multiaxial CT images were obtained from the foramen magnum to the vertex. Reformats: Sagittal and coronal. IV contrast: None. In accordance with CT protocol optimization, one or more of the following dose reduction techniques were utilized for this exam: automated exposure control, adjustment of mA and/or KV based on patient size, or use of iterative reconstructive technique. FINDINGS: Parenchyma: There is no intraparenchymal hemorrhage, midline shift, or significant mass-effect. Infiltrative partly calcified mass is seen in the sellar/suprasellar region measuring upwards of 3.2 x 2.6 x 2.6 cm (image 6, series 3 and image 16, series 6). Extraaxial Spaces: Normal for age. No subdural or epidural collections identified. Ventricles: Normal in size and position. Sinuses and Orbits: Imaged paranasal sinuses, orbits, and mastoids show no significant abnormality. Bones: No evidence of fracture or calvarial defect. Other: Small scalp contusion and soft tissue gas is seen over the right posterolateral calvarium. IMPRESSION: 1. No acute intracranial abnormality suggested. 2. 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 Consider further evaluation with pituitary protocol MRI. 3. Right posterior lateral scalp contusion/laceration. Skull intact. RADIA
--- NOTE | 2018-02-03 17:07 | CT Report ---
Reason: head injury, TTP Procedure Date: 02/03/2018 Accession Number: [id number] / [id number] Procedure: CT - Cervical Spine W/O CPT Code: FULL RESULT: EXAM: CT CERVICAL SPINE WITHOUT CONTRAST DATE: 02/03/2018 04:36 PM. HISTORY: Acute pain due to trauma. COMPARISONS: None. TECHNIQUE: Thin-section axial images were acquired of the cervical spine without contrast. Post-processing: Coronal and sagittal reformats. Other: None. In accordance with CT protocol optimization, one or more of the following dose reduction techniques were utilized for this exam: automated exposure control, adjustment of mA and/or KV based on patient size, or use of iterative reconstructive technique. FINDINGS: Alignment: No scoliosis or spondylolisthesis. Bones: No fracture or bone lesion. Interspace Levels/Facets: There is severe diffuse degenerative disk disease seen throughout the mid and lower aspects of the cervical spine. There is moderate diffuse degenerative facet disease seen throughout the mid and lower aspect of the cervical spine. The bony central canal is relatively patent. Musculature: Normal. No fatty atrophy. Other: The paravertebral and prevertebral soft tissues are unremarkable. The lung apices are clear. IMPRESSION: No acute osseous abnormality. Moderate to severe degenerative changes seen throughout the cervical spine. RADIA
[2018-02-03 18:06] VITALS: BP 161/90
== END 2018-02-03 18:27 | disposition home or self-care (01) ==
LOC: ED 15:04
DX: S09.90XA Unspecified injury of head, initial encounter (principal); S00.03XA Contusion of scalp, initial encounter; W18.30XA Fall on same level, unspecified, initial encounter; W54.8XXA Other contact with dog, initial encounter; Y92.89 Other specified places as the place of occurrence of the external cause
CPT/HCPCS: 70450; 72125; 99283; 99284

== ENCOUNTER 2018-03-09 13:10 | Outpatient (CLI) | payer MEDICARE ==
--- NOTE | 2018-03-10 11:30 | MRI Report ---
Reason: MASS LESION OF BRAIN Procedure Date: 03/09/2018 Accession Number: [id number] / [id number] Procedure: MRI - Brain W/O CPT Code: FULL RESULT: EXAM: MRI BRAIN WITHOUT CONTRAST EXAM DATE: 03/09/2018 02:45 PM. CLINICAL HISTORY: Intracranial mass follow-up. COMPARISON: Brain CT 02/03/2018. TECHNIQUE: Multiplanar, multisequence T1-weighted and fluid-sensitive MR sequences of the brain were performed. Sequences optimized for routine evaluation. Other: None. IV Contrast: None. FINDINGS: Again seen is an expansile rounded and somewhat lobulated locally infiltrative mass associated with bone remodeling synergistic to the left of midline in the region of the pituitary fossa and left cavernous sinus. The skull base at and just to the left of midline in the region of the sella is remodeled and expanded by this mixed signal mass that measures 3 cm transverse, 3 cm craniocaudal and 2.6 cm AP. This mass appears to significantly invade the left cavernous sinus anatomy and to encase the left internal carotid artery. Superiorly the mass protrudes upward into the suprasellar cistern with upward compression and displacement of the optic apparatus. The floor of the third ventricle to the left of midline is slightly elevated. This mass shows heterogeneous signal with a notable T1-T2 hypointense component. Multiple calcifications within this lesion have been previously shown by CT which may be from the mass, from arterial atherosclerotic calcification or both. Remodeling and expansion of the floor of the sella left of midline creates the appearance of the mass protruding inferiorly into the left sphenoid sinus as well as anteriorly. Stable moderate ventriculomegaly. Cerebral volume loss is present and may be age-related. Mild chronic appearing cerebral white matter disease potentially from aging and chronic microangiopathy. No acute hemorrhage or stroke. Stable nonspecific retrocerebellar fluid space widening that may represent an arachnoid cyst or Wilbur cisterna magna. No focal pathologic appearing marrow signal changes in the skull. Axial posterior fossa thin section T2 FIESTA was performed. Unremarkable contours of the canalicular and cisternal segments of the 7th and 8th cranial nerves. No evidence for acute inflammatory sinus or mastoid fluid opacification or mucosal thickening. IMPRESSION: 1. Again seen is a large expansile skull base mass centered just to the left of midline in the region of the pituitary fossa with left cavernous sinus invasion as previously shown by CT. Upward extension of the lesion creates mass effect on anatomy in the region of the suprasellar cistern. The appearance is nonspecific. The differential includes pituitary macroadenoma, craniopharyngioma, meningioma, metastasis or atypical giant aneurysm. 2. No acute hemorrhage or stroke. 3. Cerebral volume loss is present consistent with age-related atrophy. 4. Nonspecific ventriculomegaly, more likely from central greater than peripheral atrophy but some form of hydrocephalus including normal pressure hydrocephalus may be considered and clinical correlation is advised. 5. Relatively mild cerebral white matter disease, potentially from aging and chronic microangiopathy. RADIA
== END 2018-03-09 13:11 | disposition home or self-care (01) ==
LOC: DI 13:10
PROVIDERS: ATTEND Nurse Practitioner Family
DX: G93.89 Other specified disorders of brain (principal); G31.9 Degenerative disease of nervous system, unspecified
CPT/HCPCS: 70551

== ENCOUNTER 2018-04-12 12:49 | Outpatient (CLI) | payer MEDICARE ==
[2018-04-12 18:13] LABS: BASOPHILS % (AUTO) 0.8 %; EOSINOPHILS # (AUTO) 0.2 10^3/uL (0.0-0.7); EOSINOPHILS % (AUTO) 2.5 %; HGB - HEMOGLOBIN 13.7 g/dL (12.0-16.0); LYMPHOCYTES % (AUTO) 15.8 %; MEAN CORPUSCULAR HEMOGLOBIN 31.6 pg (27.0-31.0); MEAN CORPUSCULAR HGB CONC 32.9 g/dL (32.0-36.0); MEAN CORPUSCULAR VOLUME 96.1 fL (81.0-99.0); MEAN PLATELET VOLUME 7.7 fL (7.9-10.8); MONOCYTES # (AUTO) 0.5 10^3/uL (0.0-1.0); MONOCYTES % (AUTO) 7.6 %; NEUTROPHILS # (AUTO) 4.6 10^3/uL (1.5-6.6); NEUTROPHILS % (AUTO) 73.3 %; PLT - PLATELET COUNT 302 10^3/uL (130-450); RED BLOOD COUNT 4.33 10^6/uL (4.20-5.40); RED CELL DISTRIBUTION WIDTH 14.4 % (12.0-15.0); WHITE BLOOD COUNT 6.3 x10^3/uL (4.8-10.8)
[2018-04-12 21:22] LABS: % IRON SATURATION 15 % (20-50); IRON 60 ug/dL (28-170); TOTAL IRON BINDING CAPACITY 409 ug/dL (250-450); TRANSFERRIN 292 mg/dL (192-382)
== END 2018-04-12 12:50 | disposition home or self-care (01) ==
LOC: LAB.F 12:49
PROVIDERS: ATTEND Nurse Practitioner Family
DX: D62 Acute posthemorrhagic anemia (principal)
CPT/HCPCS: 36415; 82728; 83540; 84466; 85025

== ENCOUNTER 2018-12-08 13:04 | Outpatient (CLI) | payer MEDICARE ==
--- NOTE | 2018-12-09 09:26 | DEXA Report ---
Reason: OSTEOPOROSIS Procedure Date: 12/08/2018 Accession Number: [id number] / [id number] Procedure: DEX - Dexa Spine and/or Hip CPT Code: FULL RESULT: EXAM: Dexa Spine and/or Hip DATE: 12/08/2018 1:46 PM CLINICAL HISTORY: OSTEOPOROSIS TECHNIQUE: Dual energy x-ray absorptiometry (DXA) was performed on a [employer] System. Regions measured are the AP Spine, femoral neck, and if needed forearm. COMPARISON: 12/01/2016. In accordance with the International Society for Clinical Densitometry (ISCD) guidelines, data from previous exams may be reanalyzed using current recommendations and techniques. This is done to allow a more accurate basis for comparison with the current study. FINDINGS: The data for the lumbar spine is as follows: BMD (g/cm/cm) T-SCORE Z-SCORE REGION L1 1.131 0.0 2.2 L2 1.132 -0.6 1.6 L3 1.137 -0.5 1.7 L4 1.043 -1.3 0.9 TOTAL 1.115 -0.5 1.7 NOTE: All evaluable vertebrae are used for classification The data for the hip is as follows: BMD (g/cm/cm) T-SCORE Z-SCORE REGION Neck 0.763 -2.0 0.5 TOTAL 0.648 -2.9 -0.5 NOTE: The femoral neck or total proximal femur, whichever is lowest, is used for classification. DXA RESULTS SUMMARY: Spine SCAN DATE AGE BMD CHANGE VS CHANGE VS PREVIOUS PREVIOUS % [birth year]2018 [age] 1[age]109 0.100* 9.9* 12/01/2016 [age] 1[age]009 * Denotes significant change at the 95% confidence level. Denotes dissimilar scan types or analysis methods. DXA RESULTS SUMMARY: Hip SCAN DATE AGE BMD CHANGE VS CHANGE VS PREVIOUS PREVIOUS % [birth year]2018 [age] 0.648 -0.006 -0.9 [birth year]/01[birth year]2016 [age] 0.654 * Denotes significant change at the 95% confidence level. Denotes dissimilar scan types or analysis methods. IMPRESSION: THE WHO CLASSIFICATION BASED ON THE INTERNATIONAL REFERENCE STANDARD IS OSTEOPOROSIS. THE FRACTURE RISK IS HIGH. RECOMMENDATION: Patients with diagnosis of osteoporosis or osteopenia should have regular bone mineral density assessment. For those eligible for Medicare, routine testing is allowed once every 2 years. Testing frequency can be increased for patients who have rapidly progressing disease or for those who are receiving medical therapy to restore bone mass. COMMENT: World Health Organization (WHO) definitions for osteoporosis and osteopenia: NORMAL BMD: T-score at -1.0 or higher, fracture risk is low OSTEOPENIA BMD: T-score between -1.0 and -2.5, fracture risk is increased. OSTEOPOROSIS BMD: T-score at -2.5 or lower, fracture risk is high. National Osteoporosis Foundation recommends: 1. Obtain adequate dietary calcium (at least 1200 mg per day) and vitamin D (400-800 international units per day). 2. Participate, as appropriate, in regular weightbearing and muscle-strengthening exercise. 3. Avoid tobacco use and reduce alcohol and caffeine intake. 4. For more detailed information see the website at www.NOF.org.
== END 2018-12-08 13:05 | disposition home or self-care (01) ==
LOC: DI 13:04
PROVIDERS: ATTEND Internal Medicine
DX: M85.88 Other specified disorders of bone density and structure, other site (principal)
CPT/HCPCS: 77080

== ENCOUNTER 2019-01-12 15:04 | Outpatient (CLI) | payer MEDICARE ==
[2019-01-12 17:25] LABS: MEAN CORPUSCULAR HEMOGLOBIN 26.5 pg (27.0-31.0); MEAN CORPUSCULAR HGB CONC 29.1 g/dL (32.0-36.0); MEAN CORPUSCULAR VOLUME 91.2 fL (81.0-99.0); MEAN PLATELET VOLUME 9.8 fL (7.9-10.8); RED BLOOD COUNT 3.77 10^6/uL (4.20-5.40); RED CELL DISTRIBUTION WIDTH 15.8 % (12.0-15.0); WHITE BLOOD COUNT 6.5 x10^3/uL (4.8-10.8)
[2019-01-12 17:45] LABS: THYROID STIMULATING HORMONE 1.09 uIU/mL (0.34-5.60)
[2019-01-12 17:47] LABS: % IRON SATURATION 49 % (20-50); IRON 214 ug/dL (28-170); TOTAL IRON BINDING CAPACITY 434 ug/dL (250-450); TRANSFERRIN 310 mg/dL (192-382)
== END 2019-01-12 15:05 | disposition home or self-care (01) ==
LOC: LAB.S 15:04
PROVIDERS: ATTEND Internal Medicine
DX: D50.9 Iron deficiency anemia, unspecified (principal); E03.9 Hypothyroidism, unspecified
CPT/HCPCS: 36415; 82728; 83540; 84443; 84466; 85027

== ENCOUNTER 2019-03-27 14:28 | Outpatient (CLI) | payer MEDICARE ==
[2019-03-27 17:17] LABS: ALBUMIN 2.8 g/dL (3.2-5.5); ALBUMIN/GLOBULIN RATIO 0.6 (1.0-2.2); BILIRUBIN,TOTAL 0.5 mg/dL (0.2-1.0); CALCIUM 9.4 mg/dL (8.5-10.3); CREATININE 0.9 mg/dL (0.4-1.0); TOTAL PROTEIN 7.3 g/dL (6.7-8.2)
[2019-03-27 17:33] LABS: BASOPHILS # (AUTO) 0.1 10^3/uL (0.0-0.1); BASOPHILS % (AUTO) 0.6 %; EOSINOPHILS # (AUTO) 0.1 10^3/uL (0.0-0.7); EOSINOPHILS % (AUTO) 0.8 %; MEAN CORPUSCULAR HEMOGLOBIN 26.4 pg (27.0-31.0); MEAN CORPUSCULAR HGB CONC 29.8 g/dL (32.0-36.0); MEAN CORPUSCULAR VOLUME 88.7 fL (81.0-99.0); MEAN PLATELET VOLUME 8.5 fL (7.9-10.8); MONOCYTES # (AUTO) 1.1 10^3/uL (0.0-1.0); MONOCYTES % (AUTO) 7.7 %; NEUTROPHILS # (AUTO) 11.8 10^3/uL (1.5-6.6); NEUTROPHILS % (AUTO) 83.3 %; PLT - PLATELET COUNT 617 10^3/uL (130-450); RED BLOOD COUNT 4.16 10^6/uL (4.20-5.40); RED CELL DISTRIBUTION WIDTH 16.9 % (12.0-15.0); WHITE BLOOD COUNT 14.2 x10^3/uL (4.8-10.8)
== END 2019-03-27 14:29 | disposition home or self-care (01) ==
LOC: LAB.S 14:28
PROVIDERS: ATTEND Family Medicine
DX: D49.7 Neoplasm of unspecified behavior of endocrine glands and other parts of nervous system (principal); D50.9 Iron deficiency anemia, unspecified
CPT/HCPCS: 36415; 80053; 84146; 85025

== ENCOUNTER 2019-04-17 15:35 | Outpatient (CLI) | payer MEDICARE ==
[2019-04-17 18:00] LABS: BASOPHILS # (AUTO) 0.1 10^3/uL (0.0-0.1); BASOPHILS % (AUTO) 0.6 %; EOSINOPHILS # (AUTO) 0.3 10^3/uL (0.0-0.7); EOSINOPHILS % (AUTO) 2.8 %; LYMPHOCYTES # (AUTO) 0.9 10^3/uL (1.5-3.5); LYMPHOCYTES % (AUTO) 9.6 %; MEAN CORPUSCULAR HEMOGLOBIN 27.6 pg (27.0-31.0); MEAN CORPUSCULAR HGB CONC 30.6 g/dL (32.0-36.0); MEAN CORPUSCULAR VOLUME 90.5 fL (81.0-99.0); MEAN PLATELET VOLUME 8.8 fL (7.9-10.8); MONOCYTES # (AUTO) 0.7 10^3/uL (0.0-1.0); MONOCYTES % (AUTO) 7.4 %; NEUTROPHILS % (AUTO) 79.3 %; PLT - PLATELET COUNT 482 10^3/uL (130-450); RED BLOOD COUNT 3.98 10^6/uL (4.20-5.40); RED CELL DISTRIBUTION WIDTH 16.2 % (12.0-15.0); WHITE BLOOD COUNT 8.8 x10^3/uL (4.8-10.8)
[2019-04-19 10:22] LABS: ANA SCREEN NEGATIVE (NEGATIVE)
== END 2019-04-17 15:36 | disposition home or self-care (01) ==
LOC: LAB.S 15:35
PROVIDERS: ATTEND Family Medicine
DX: M25.50 Pain in unspecified joint (principal)
CPT/HCPCS: 36415; 85025; 85651; 86038; 86140

== ENCOUNTER 2019-07-17 10:55 | Outpatient (CLI) | payer MEDICARE ==
[2019-07-17 17:33] LABS: CHOL/HDL RATIO 2.4 (<4.4); CHOLESTEROL 155 mg/dL; HDL CHOLESTEROL 64 mg/dL; LDL CHOLESTEROL,CALCULATED 73 mg/dL; LDL/HDL RATIO 1.1 (<4.4); VLDL CHOLESTEROL 18 mg/dL
== END 2019-07-17 10:56 | disposition home or self-care (01) ==
LOC: LAB.S 10:55
PROVIDERS: ATTEND Family Medicine
DX: E78.5 Hyperlipidemia, unspecified (principal); Z86.79 Personal history of other diseases of the circulatory system; I10 Essential (primary) hypertension
CPT/HCPCS: 36415; 80061; 83721

== ENCOUNTER 2020-02-20 11:03 | Outpatient (CLI) | payer MEDICARE ==
[2020-02-20 15:29] LABS: BASOPHILS # (AUTO) 0.1 10^3/uL (0.0-0.1); BASOPHILS % (AUTO) 0.9 %; EOSINOPHILS # (AUTO) 0.2 10^3/uL (0.0-0.7); HGB - HEMOGLOBIN 10.6 g/dL (12.0-16.0); LYMPHOCYTES # (AUTO) 1.2 10^3/uL (1.5-3.5); LYMPHOCYTES % (AUTO) 21.5 %; MEAN CORPUSCULAR HEMOGLOBIN 26.2 pg (27.0-31.0); MEAN CORPUSCULAR HGB CONC 29.7 g/dL (32.0-36.0); MEAN CORPUSCULAR VOLUME 88.1 fL (81.0-99.0); MEAN PLATELET VOLUME 9.6 fL (7.9-10.8); MONOCYTES # (AUTO) 0.5 10^3/uL (0.0-1.0); MONOCYTES % (AUTO) 9.2 %; NEUTROPHILS # (AUTO) 3.7 10^3/uL (1.5-6.6); NEUTROPHILS % (AUTO) 65.2 %; PLT - PLATELET COUNT 345 10^3/uL (130-450); RED BLOOD COUNT 4.05 10^6/uL (4.20-5.40); RED CELL DISTRIBUTION WIDTH 16.8 % (12.0-15.0); WHITE BLOOD COUNT 5.6 x10^3/uL (4.8-10.8)
[2020-02-20 16:02] LABS: ALBUMIN 4.1 g/dL (3.2-5.5); ALBUMIN/GLOBULIN RATIO 1.1 (1.0-2.2); ALKALINE PHOSPHATASE 236 IU/L (42-121); ALT ALANINE AMINOTRANSFERASE 35 IU/L (10-60); AST ASPARTATE AMINOTRANSFERASE 37 IU/L (10-42); BILIRUBIN,TOTAL 0.9 mg/dL (0.2-1.0); BUN - BLOOD UREA NITROGEN 21 mg/dL (6-20); CALCIUM 10.1 mg/dL (8.5-10.3); CARBON DIOXIDE - CO2 29 mmol/L (21-32); CHLORIDE 98 mmol/L (101-111); CHOL/HDL RATIO 2.6 (<4.4); CHOLESTEROL 147 mg/dL; CREATININE 0.9 mg/dL (0.4-1.0); GLUCOSE 106 mg/dL (70-100); HDL CHOLESTEROL 57 mg/dL; LDL CHOLESTEROL,CALCULATED 63 mg/dL; LDL/HDL RATIO 1.1 (<4.4); SODIUM 138 mmol/L (135-145); TOTAL PROTEIN 7.7 g/dL (6.7-8.2); VLDL CHOLESTEROL 27 mg/dL
== END 2020-02-20 11:04 | disposition home or self-care (01) ==
LOC: LAB.S 11:03
PROVIDERS: ATTEND Internal Medicine
DX: I10 Essential (primary) hypertension (principal); E78.5 Hyperlipidemia, unspecified; E03.9 Hypothyroidism, unspecified; D50.9 Iron deficiency anemia, unspecified
CPT/HCPCS: 36415; 80053; 80061; 83721; 84443; 85025

== ENCOUNTER 2020-10-17 10:12 | Outpatient (CLI) | payer MEDICARE ==
[2020-10-17 15:16] LABS: BASOPHILS % (AUTO) 0.5 %; EOSINOPHILS # (AUTO) 0.3 10^3/uL (0.0-0.7); EOSINOPHILS % (AUTO) 3.3 %; HCT - HEMATOCRIT 33.7 % (37.0-47.0); LYMPHOCYTES # (AUTO) 0.9 10^3/uL (1.5-3.5); LYMPHOCYTES % (AUTO) 12.1 %; MEAN CORPUSCULAR HEMOGLOBIN 24.8 pg (27.0-31.0); MEAN CORPUSCULAR HGB CONC 29.7 g/dL (32.0-36.0); MEAN CORPUSCULAR VOLUME 83.6 fL (81.0-99.0); MEAN PLATELET VOLUME 9.4 fL (7.9-10.8); MONOCYTES # (AUTO) 0.6 10^3/uL (0.0-1.0); MONOCYTES % (AUTO) 8.1 %; NEUTROPHILS # (AUTO) 5.8 10^3/uL (1.5-6.6); NEUTROPHILS % (AUTO) 75.6 %; PLT - PLATELET COUNT 439 10^3/uL (130-450); RED BLOOD COUNT 4.03 10^6/uL (4.20-5.40); RED CELL DISTRIBUTION WIDTH 17.3 % (12.0-15.0); WHITE BLOOD COUNT 7.7 x10^3/uL (4.8-10.8)
[2020-10-17 15:37] LABS: ALBUMIN 4.2 g/dL (3.2-5.5); ALBUMIN/GLOBULIN RATIO 1.1 (1.0-2.2); BILIRUBIN,TOTAL 0.6 mg/dL (0.2-1.0); CALCIUM 9.7 mg/dL (8.5-10.3); CREATININE 0.8 mg/dL (0.4-1.0); POTASSIUM 3.2 mmol/L (3.5-5.0)
[2020-10-17 15:41] LABS: THYROID STIMULATING HORMONE 1.54 uIU/mL (0.34-5.60)
[2020-10-17 15:47] LABS: FERRITIN 9.6 ng/mL (11.0-306.8)
== END 2020-10-17 10:13 | disposition home or self-care (01) ==
LOC: LAB.S 10:12
PROVIDERS: ATTEND Internal Medicine
DX: I10 Essential (primary) hypertension (principal); D64.9 Anemia, unspecified; E03.9 Hypothyroidism, unspecified
CPT/HCPCS: 36415; 80053; 82728; 83540; 84443; 84466; 85025

== ENCOUNTER 2021-01-18 07:00 | Outpatient (CLI) | payer MEDICARE ==
[2021-01-28 12:51] LABS: FECAL OCCULT BLOOD (FIT) NEGATIVE (NEGATIVE)
== END 2021-01-18 23:59 | disposition home or self-care (01) ==
LOC: LAB.R 07:00
PROVIDERS: ATTEND Internal Medicine
DX: Z12.11 Encounter for screening for malignant neoplasm of colon (principal)
CPT/HCPCS: 82274

== ENCOUNTER 2021-04-08 15:49 | Outpatient (CLI) | payer MEDICARE ==
[2021-04-08 19:55] LABS: BASOPHILS # (AUTO) 0.1 10^3/uL (0.0-0.1); BASOPHILS % (AUTO) 0.8 %; EOSINOPHILS # (AUTO) 0.3 10^3/uL (0.0-0.7); EOSINOPHILS % (AUTO) 3.5 %; HGB - HEMOGLOBIN 12.3 g/dL (12.0-16.0); LYMPHOCYTES # (AUTO) 1.2 10^3/uL (1.5-3.5); LYMPHOCYTES % (AUTO) 15.9 %; MEAN CORPUSCULAR HEMOGLOBIN 28.9 pg (27.0-31.0); MEAN CORPUSCULAR HGB CONC 31.5 g/dL (32.0-36.0); MEAN CORPUSCULAR VOLUME 91.8 fL (81.0-99.0); MEAN PLATELET VOLUME 9.3 fL (7.9-10.8); MONOCYTES # (AUTO) 0.7 10^3/uL (0.0-1.0); MONOCYTES % (AUTO) 8.8 %; NEUTROPHILS # (AUTO) 5.5 10^3/uL (1.5-6.6); NEUTROPHILS % (AUTO) 70.9 %; PLT - PLATELET COUNT 334 10^3/uL (130-450); RED BLOOD COUNT 4.25 10^6/uL (4.20-5.40); RED CELL DISTRIBUTION WIDTH 16.6 % (12.0-15.0); WHITE BLOOD COUNT 7.8 x10^3/uL (4.8-10.8)
[2021-04-08 20:08] LABS: ALBUMIN 4.3 g/dL (3.2-5.5); ALBUMIN/GLOBULIN RATIO 1.2 (1.0-2.2); BILIRUBIN,TOTAL 0.5 mg/dL (0.2-1.0); CALCIUM 9.8 mg/dL (8.5-10.3); CREATININE 0.7 mg/dL (0.4-1.0); POTASSIUM 3.9 mmol/L (3.5-5.0)
[2021-04-08 20:25] LABS: THYROID STIMULATING HORMONE 4.12 uIU/mL (0.34-5.60)
[2021-04-08 20:31] LABS: FERRITIN 16.8 ng/mL (11.0-306.8)
== END 2021-04-08 15:50 | disposition home or self-care (01) ==
LOC: LAB.S 15:49
PROVIDERS: ATTEND Internal Medicine
DX: I10 Essential (primary) hypertension (principal); D64.9 Anemia, unspecified; E03.9 Hypothyroidism, unspecified
CPT/HCPCS: 36415; 80053; 82728; 84443; 85025

== ENCOUNTER 2021-06-11 10:10 | Outpatient (CLI) | payer MEDICARE ==
[2021-06-11 14:58] LABS: BASOPHILS % (AUTO) 0.7 %; EOSINOPHILS # (AUTO) 0.2 10^3/uL (0.0-0.7); EOSINOPHILS % (AUTO) 3.9 %; HCT - HEMATOCRIT 31.6 % (37.0-47.0); HGB - HEMOGLOBIN 9.7 g/dL (12.0-16.0); LYMPHOCYTES # (AUTO) 1.2 10^3/uL (1.5-3.5); LYMPHOCYTES % (AUTO) 19.7 %; MEAN CORPUSCULAR HEMOGLOBIN 27.6 pg (27.0-31.0); MEAN CORPUSCULAR HGB CONC 30.7 g/dL (32.0-36.0); MEAN PLATELET VOLUME 9.2 fL (7.9-10.8); MONOCYTES # (AUTO) 0.6 10^3/uL (0.0-1.0); MONOCYTES % (AUTO) 9.2 %; NEUTROPHILS # (AUTO) 3.9 10^3/uL (1.5-6.6); NEUTROPHILS % (AUTO) 66.2 %; PLT - PLATELET COUNT 462 10^3/uL (130-450); RED BLOOD COUNT 3.51 10^6/uL (4.20-5.40); RED CELL DISTRIBUTION WIDTH 15.1 % (12.0-15.0)
[2021-06-11 15:18] LABS: CHOL/HDL RATIO 2.4 (<4.4); CHOLESTEROL 150 mg/dL; HDL CHOLESTEROL 62 mg/dL; LDL CHOLESTEROL,CALCULATED 65 mg/dL; TRIGLYCERIDES 115 mg/dL; VLDL CHOLESTEROL 23 mg/dL
== END 2021-06-11 10:11 | disposition home or self-care (01) ==
LOC: LAB.S 10:10
PROVIDERS: ATTEND Internal Medicine
DX: E78.5 Hyperlipidemia, unspecified (principal); D64.9 Anemia, unspecified
CPT/HCPCS: 36415; 80061; 83721; 85025

== ENCOUNTER 2021-06-24 14:01 | Outpatient (CLI) | payer MEDICARE ==
--- NOTE | 2021-06-24 16:46 | XRAY Report ---
PROCEDURE: Hips 2V BILAT INDICATIONS: HIP PAIN TECHNIQUE: AP pelvis and one view of each hip obtained. COMPARISON: None FINDINGS: Bones: No fractures or dislocations. No suspicious bony lesions. The visualized pelvic ring appear s intact. Severe bilateral hip joint space narrowing, subchondral cyst formation, and subchondral sc lerosis bilaterally. Soft tissues: No suspicious soft tissue calcifications or masses. IMPRESSION: Severe bilateral hip osteoarthritis. No acute fracture. No osseous lesion. If symptoms and/or clinica l suspicion for pathology continue, further assessment with repeat plain films, or advanced imaging ( e.g., CT, MRI, or bone scan) is recommended for further assessment. Reviewed by: Arti Simpson MD on 06/24/2021 4:45 PM PST Approved by: Arti Simpson MD on 06/24/2021 4:45 PM PST Station ID: [id number]
== END 2021-06-24 14:02 | disposition home or self-care (01) ==
LOC: DI.S 14:01
PROVIDERS: ATTEND Internal Medicine
DX: M16.0 Bilateral primary osteoarthritis of hip (principal)

== ENCOUNTER 2021-07-29 08:00 | Outpatient (CLI) | payer MEDICARE ==
--- NOTE | 2021-07-29 16:22 | XRAY Report ---
PROCEDURE: Hip 2 View LT INDICATIONS: LEFT HIP PAIN TECHNIQUE: 2 views of the hip were acquired. COMPARISON: X-ray hip 06/24/2021 FINDINGS: Bones: No fractures or dislocations. No suspicious bony lesions. The visualized pelvic ring appear s intact. There is severe bilateral degenerative hip joint space narrowing. Subchondral sclerosis is present with periarticular lucency slightly more prominent on the left. Femoral osteophytes are pres ent. Degenerative changes are present within the lower lumbar spine. Soft tissues: No suspicious soft tissue calcifications or masses. IMPRESSION: Severe arthritic changes within the hips bilaterally as above. Areas of periarticular lucency are pre sent suggestive of erosions versus degenerative cysts. Reviewed by: Claudia Bourne MD on 07/29/2021 4:21 PM PDT Approved by: Claudia Bourne MD on 07/29/2021 4:21 PM PDT Station ID: [id number]
== END 2021-07-29 23:59 ==
LOC: DI.WOS 08:00
PROVIDERS: ATTEND Physician Assistant
DX: M16.0 Bilateral primary osteoarthritis of hip (principal); R93.6 Abnormal findings on diagnostic imaging of limbs

== ENCOUNTER 2021-09-23 11:22 | Outpatient (CLI) | payer MEDICARE ==
[2021-09-23 14:11] LABS: BASOPHILS # (AUTO) 0.1 10^3/uL (0.0-0.1); BASOPHILS % (AUTO) 0.9 %; EOSINOPHILS # (AUTO) 0.2 10^3/uL (0.0-0.7); EOSINOPHILS % (AUTO) 3.4 %; HCT - HEMATOCRIT 36.4 % (37.0-47.0); HGB - HEMOGLOBIN 11.1 g/dL (12.0-16.0); LYMPHOCYTES # (AUTO) 1.3 10^3/uL (1.5-3.5); LYMPHOCYTES % (AUTO) 19.4 %; MEAN CORPUSCULAR HEMOGLOBIN 26.7 pg (27.0-31.0); MEAN CORPUSCULAR HGB CONC 30.5 g/dL (32.0-36.0); MEAN CORPUSCULAR VOLUME 87.7 fL (81.0-99.0); MEAN PLATELET VOLUME 9.5 fL (7.9-10.8); MONOCYTES # (AUTO) 0.6 10^3/uL (0.0-1.0); MONOCYTES % (AUTO) 8.6 %; NEUTROPHILS # (AUTO) 4.6 10^3/uL (1.5-6.6); NEUTROPHILS % (AUTO) 67.4 %; PLT - PLATELET COUNT 377 10^3/uL (130-450); RED BLOOD COUNT 4.15 10^6/uL (4.20-5.40); RED CELL DISTRIBUTION WIDTH 18.3 % (12.0-15.0); WHITE BLOOD COUNT 6.8 x10^3/uL (4.8-10.8)
[2021-09-23 14:44] LABS: ALBUMIN 4.1 g/dL (3.2-5.5); ALBUMIN/GLOBULIN RATIO 1.1 (1.0-2.2); BILIRUBIN,TOTAL 0.6 mg/dL (0.2-1.0); CALCIUM 10.2 mg/dL (8.5-10.3); CREATININE 0.7 mg/dL (0.4-1.0); TOTAL PROTEIN 7.7 g/dL (6.7-8.2)
[2021-09-23 14:53] LABS: THYROID STIMULATING HORMONE 3.3 uIU/mL (0.34-5.60)
== END 2021-09-23 11:23 | disposition home or self-care (01) ==
LOC: LAB.S 11:22
PROVIDERS: ATTEND Registered Nurse
DX: Z01.812 Encounter for preprocedural laboratory examination (principal)
CPT/HCPCS: 36415; 80053; 82728; 84443; 85025

== ENCOUNTER 2021-09-30 15:50 | Outpatient (CLI) | payer MEDICARE ==
[2021-09-30 20:35] LABS: ALBUMIN 4.1 g/dL (3.2-5.5); ALKALINE PHOSPHATASE 380 IU/L (42-121); ALT ALANINE AMINOTRANSFERASE 67 IU/L (10-60); AST ASPARTATE AMINOTRANSFERASE 70 IU/L (10-42); BILIRUBIN,TOTAL 0.2 mg/dL (0.2-1.0); TOTAL PROTEIN 7.9 g/dL (6.7-8.2)
[2021-09-30 20:38] LABS: BILIRUBIN,DIRECT < 0.1 mg/dL (0.1-0.5)
[2021-10-02 06:11] LABS: HBsAG SCREEN Negative (Negative); HEPATITIS B SURFACE AB QUANT <3.1 mIU/mL (Immunity>9.9)
[2021-10-03 21:07] LABS: HCV IU/ML HCV Not Detected IU/mL (.)
== END 2021-09-30 15:51 | disposition home or self-care (01) ==
LOC: LAB.S 15:50
PROVIDERS: ATTEND Registered Nurse
DX: R74.8 Abnormal levels of other serum enzymes (principal)
CPT/HCPCS: 36415; 80076; 81599; 86317; 86704; 86709; 86803; 87340; 87350; 87521; 87522

== ENCOUNTER 2021-10-08 07:27 | Day surgery (SDC) | payer MEDICARE ==
[~2021-10-08 07:27] MED LIST: BUPIVACAINE 0.25% PF 10 ML VIAL ONE; VANCOMYCIN 1 GM VIAL ONE
[2021-10-08] MEDS ORDERED: LACTATED RINGERS 1,000 ML IV ONE ×2 (07:31→12:02)
[2021-10-08] MEDS ORDERED: CELECOXIB 100 MG CAPSULE PO ONE (07:32)
[2021-10-08] MEDS ORDERED: ACETAMINOPHEN 500 MG TABLET PO ONE (07:33)
[2021-10-08] MEDS ORDERED: CEFAZOLIN SODIUM IN 0.9 % NACL 2 GM/50 ML BAG IV ONE (07:33)
[2021-10-08] MEDS ORDERED: DEXAMETHASONE 10 MG/ML VIAL ONE (07:33)
--- NOTE | 2021-10-08 07:46 | ANESTHESIA ---
Pre-Anesthesia VS, & Labs - Diagnosis hip osteoarthritis - Procedure left total hip arthroplasty Height: 5 ft - NPO >8 hours - Is Patient ?: No Home Medications and Allergies Home Medications: Ambulatory Orders Acetaminophen [Tylenol Arthritis] 2 tab PO TID 09/30/21 Ascorbic Acid [Vitamin C] 500 mg PO DAILY 09/30/21 Aspirin EC [Ecotrin] 81 mg PO DAILY 09/30/21 Astaxanthin 4 mg PO DAILY 09/30/21 Atorvastatin Calcium [Lipitor] 80 mg PO DAILY 09/30/21 Cabergoline [Dostinex] 0.5 mg PO ONCE 09/30/21 Chlorthalidone 25 mg PO DAILY 09/30/21 Proteolytic Enzyme 1 tab PO DAILY 09/30/21 Thymus Gland,Calf [Thymus] 2 tab PO DAILY 09/30/21 Tolterodine Tartrate [Detrol LA] 4 mg PO DAILY 09/30/21 Calcium Carb/Magnesium Ox,Carb [Doroteo-Mag Tablet Chewable] 2 tab PO DAILY 06/23/13 Cholecalciferol (Vitamin D3) [D3 Dots] 5,000 unit PO DAILY 06/23/13 Multivitamin [Multi-Vitamin Daily] 3 tab PO QAM 06/23/13 Ringle-3 Fatty Acids [Ringle-3] 2,000 mg PO QAM 06/23/13 Thyroid,Pork [Nature-Throid] 16.25 mg PO QAM 06/23/13 Ubidecarenone [Co Q-10] 10 mg PO DAILY 06/23/13 resveratroL [Resveratrol] 100 mg PO QAM 06/23/13 Lactobacillus Acidophilus [Acidophilus] 1 each PO DAILY 08/14/17 Acetaminophen [Tylenol Arthritis] 2 tab PO TID 09/30/21 Ascorbic Acid [Vitamin C] 500 mg PO DAILY 09/30/21 Aspirin EC [Ecotrin] 81 mg PO DAILY 09/30/21 Astaxanthin 4 mg PO DAILY 09/30/21 Atorvastatin Calcium [Lipitor] 80 mg PO DAILY 09/30/21 Cabergoline [Dostinex] 0.5 mg PO ONCE 09/30/21 Chlorthalidone 25 mg PO DAILY 09/30/21 Proteolytic Enzyme 1 tab PO DAILY 09/30/21 Thymus Gland,Calf [Thymus] 2 tab PO DAILY 09/30/21 Tolterodine Tartrate [Detrol LA] 4 mg PO DAILY 05/17/22 Allergies/Adverse Reactions: Allergies Allergy/AdvReac Type Severity Reaction Status Date / Time No Known Drug Allergies Allergy Verified 01/31/18 12:19 Anes History & Medical History - Anesthetic History Anesthesia Complications: reports: No previous complications - Medical History Cardiovascular: reports: Hypertension Pulmonary: reports: None Gastrointestinal: reports: Other Urinary: reports: Incontinence Musculoskeletal: reports: None Endocrine/Autoimmune: reports: HyPOthyroidism Blood Disorders: reports: Anemia Skin: reports: Psoriasis Smoking Status: Never smoker History of Cancer?: No - Surgical History General: reports: Colonoscopy Gynecologic: reports: Hysterectomy Exam General: Alert, Oriented x3 Dental: WNL Mouth Openin Fingerbreadth Neck Mobility: Reduced Mallampati classification: III Thyromental Distance: 4-6 cm Respiratory: Lungs clear Cardiovascular: Regular rate, Normal S1, Normal S2 Plan Anesthesia Type: Spinal, Fascia Iliaca Block Consent for Procedure(s) Verified and Reviewed: Yes Code Status: Attempt Resuscitation ASA classification: 2-Mild systemic disease Is this case an emergency?: No
[2021-10-08] MEDS ORDERED: MIDAZOLAM 2 MG/2 ML VIAL ONE (07:58)
[2021-10-08] MEDS ORDERED: fentaNYL 100 MCG/2 ML VIAL ONE (07:59)
[2021-10-08] MEDS ORDERED: PROPOFOL 200 MG/20 ML VIAL IVP ONE (07:59)
[2021-10-08] MEDS ORDERED: ONDANSETRON 4 MG/2 ML VIAL IVP PRN ×2 (08:20→08:28)
[2021-10-08] MEDS ORDERED: HYDROmorphone 0.5 MG/0.5 ML SYRINGE IVP PRN (08:20)
[2021-10-08] MEDS ORDERED: NALOXONE 0.4 MG/ML VIAL IVP PRN (08:20)
[2021-10-08] MEDS ORDERED: MORPHINE 2 MG/ML CARPUJECT IVP PRN (08:20)
[2021-10-08] MEDS ORDERED: ATROPINE ABBOJECT 1 MG/10 ML SYRINGE IVP PRN (08:20)
[2021-10-08] MEDS ORDERED: ePHEDrine 50 MG/ML VIAL IVP PRN (08:20)
[2021-10-08] MEDS ORDERED: fentaNYL 100 MCG/2 ML VIAL IVP PRN (08:20)
[2021-10-08] MEDS ORDERED: KETAMINE 500 MG/10 ML VIAL ONE (08:22)
[2021-10-08] MEDS ORDERED: PROPOFOL 500 MG/50 ML 500 MG/50 ML VIAL ONE (08:22)
[2021-10-08] MEDS ORDERED: SODIUM CHLORIDE 0.9% 10 ML VIAL IVP ONE ×2 (08:23→11:16)
[2021-10-08] MEDS ORDERED: ePHEDrine 50 MG/ML VIAL IVP ONE (08:27)
[2021-10-08] MEDS ORDERED: BUPIVACAINE 0.5% PF 10 ML VIAL ONE (08:27)
[2021-10-08] MEDS ORDERED: SODIUM CHLORIDE FLUSH 0.9% 10 ML SYRINGE IVP PRN (08:28)
[2021-10-08] MEDS ORDERED: oxyCODONE 5 MG TABLET PO PRN (08:28)
[2021-10-08] MEDS ORDERED: LACTATED RINGERS 1,000 ML IV SCH (09:00)
[2021-10-08] MEDS ORDERED: TRANEXAMIC ACID 1,000 MG/10 ML VIAL ONE (09:16)
[2021-10-08] MEDS ORDERED: VANCOMYCIN 1 GM VIAL MC ONE (09:35)
[2021-10-08] MEDS ORDERED: BUPIVACAINE 0.25% PF 10 ML VIAL SUBQ ONE ×2 (09:35)
[2021-10-08] MEDS ORDERED: ROPIVACAINE 0.5% PF 20 ML AMPULE ONE (11:16)
[2021-10-08] MEDS ORDERED: DEXAMETHASONE 4 MG/ML VIAL ONE (11:16)
--- NOTE | 2021-10-08 11:23 | OPERATIVE REPORT ---
Operative Report - General Procedure Date: 10/08/21 Planned Procedure: Left total hip arthroplasty Pre-Op Diagnosis: Osteoarthritis left hip Procedure Performed: Left total hip arthroplasty:Mello [employer] Nephew #15 noncemented femoral component, du al mobility with +4 mm femoral neck, 50 mm acetabular noncemented cup Post Op Diagnosis: Same as preoperative diagnosis - Procedure Note Primary Surgeon: Raul Awan MD Secondary Surgeon: Yoel Hsieh Anesthesia Provider: Ashley Snow CRNA Anesthesia Technique: Spinal Estimated Blood Loss (mL): 150 Indications: This is a 86-year-old woman with bilateral hip osteoarthritis, very symptomatic and otherwise reasonably good health. She wants to be active but has difficulty doing all walking activities including activities of daily living and activities that improve her quality of life. Her hips show bilateral Stinchfield test that are positive, positive impingement test and painful and limited motion to both hips. Routine radiographs show complete loss of joint space to both hips with femoral head deformity, subchondral cysts and osteophytes consistent with advanced osteoarthritis both hips. She has had preoperative medical evaluation, attended joint camp and has signed informed consent for surgery, left total hip arthroplasty. Findings: There was no articular cartilage remaining to the left hip joint. There is eburnated femoral head with deformity of femoral head and osteophytes. The acetabulum had no articular cartilage. Complications: None - Other Other Information/Narrative: After satisfactory spinal anesthesia had been achieved, the patient was placed in a lateral decubitus position with the left hip facing superiorly. The patient was secured in the lateral decubitus position using a pegboard with 2 post securing the torso and 2 posts securing the pelvis. The left hip and left lower extremity were prepped and draped in a sterile manner in the usual fashion. A timeout procedure was performed by the entire operating room team and all were in agreement. A longitudinal incision was made about the lateral left hip beginning at the vastus lateralis ridge of the proximal femur and extending it proximally approximately 3 fingerbreadths above the trochanter. The subcutaneous tissue and fascia sherin were split in line with the incision. The anterior one third of the gluteus medius was incised at the tendinous junction. The gluteus medius was retracted medially. The hip capsule was exposed and was split in a T-shaped fashion. Part of the anterior hip capsule was excised. The femoral head was dislocated with flexion, adduction and external rotation. An osteotomy was done to the femoral neck using a osteotomy guide. Retractors were placed behind the femoral neck to protect the soft tissues from the oscillating saw. The proximal femur was retracted. 2 acetabular retractors were placed one anteriorly directly against bone to reduce any soft tissue impingement to femoral nerve. The second retractor was placed more posteriorly directly against bone and preventing any impingement against sciatic nerve. The acetabulum was prepared with a large curette. Medialization of the acetabulum was performed with a small acetabular reamer and then widening was done up to a 49 mm reamer the final reamers were placed in approximately 20 degrees anteversion and 40 degrees of abduction. A trial acetabular component was inserted, 53 mm and this fit well. A permanent 50 mm R3 acetabular 3-hole component was then impacted in 40 degrees of abduction and approximately 20 degrees of anteversion. This had good fixation to push pull and rotation. A single 30 mm superior acetabular screw was inserted. The stability of the acetabular cup was very good. A dual mobility liner was inserted into the cup. The femoral canal was opened with a box osteotome, starting reamer and then a short broach. Broaching was carried out to a #15. Calcar reaming was performed. Good fit and stability to the #15 stem was achieved. Trial reduction was performed. Hip motion was very good and the hip was stable to dislocation maneuvers. The trial components were removed. The #15 Syngeryfemoral stem was impacted and fully seated. It was elected not to use a cemented stem since a very good press-fit was achieved. The dual mobility plus 4 femoral head was impacted on the femoral trunnion. There was good stability to push pull and rotation. The hip was reduced, had good leg length tension and good stability with dislocation maneuvers. 3-minute lavage with dilute Betadine was performed. Vancomycin 2 g powder was added to the hip joint.The hip abductors were repaired at the myotendinous junction with #1Stratofix The fascia sherin was closed with #1 Stratofix. The subcutaneous tissue was closed with 2-0 Stratofix. The skin was closed with a 3-0 Monocryl subcuticular closure and Dermabond. The patient tolerated the procedure well. A physician assistant front office manager was utilized during the procedure to provide retraction and protection of neurovascular structures as well as to facilitate dislocation and reduction of the hip joint.The patient received 2 g of Ancef intravenously and 1 g of tranxemic acid prior to the incision; 1 g of tranxemic acid intravenously at the closure of the incision as well
--- NOTE | 2021-10-08 12:30 | XRAY Report ---
PROCEDURE: Pelvis 1 View INDICATIONS: POST OPERATIVE IMAGING TECHNIQUE: 1 view(s) of the pelvis acquired. COMPARISON: None. FINDINGS: Bones: Patient is status post left total hip arthroplasty. Left hip alignment is anatomic. Severe rig ht hip joint osteoarthritic changes are seen. No acute fracture or dislocation. No suspicious bony le sions. Soft tissues: Expected postsurgical changes are noted in left hip soft tissue. IMPRESSION: Postop changes from left total hip arthroplasty with anatomic left hip alignment. Reviewed by: Greg Mondragon MD on 10/08/2021 12:29 PM PDT Approved by: Greg Mondragon MD on 10/08/2021 12:29 PM PDT Station ID: [id number]
--- NOTE | 2021-10-08 12:38 | CONSULTATION NOTE ---
Referring Provider Name of Referring Provider:: Lv MARTINEZ Consult Date: 10/08/21 Chief Complaint - Chief Complaint Chief Complaint: Post-op management of HTN and home meds History of Present Illness - Admitted From Admitted From:: Home - History Obtained From History obtained from: [facility], patient, pt's daughter, pt's Exam Limitations: none - History of Present Illness HPI Comment/Other: Pt presents post-op left total hip arthroplasty. About five years ago pt had hip pain and XR of hips and was told she needed to replace them. With OTC pain medications and PT, pt was able to manage pain and maintain mobility. Per patient, she felt like this procedure would improve her quality of life and finally opted to have her hip replaced. 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 - Substance History Use: Uses substance without health or social issues: Alcohol (An occassional glass of wine) Abuse: Recurrent use of substance despite neg consequences: NONE Dependence: Experiences withdrawal or developed tolerances: NONE - POLST Patient has POLST: No POLST Status: DNR Meds/Allgy - Home Medications Home Medications: Ambulatory Orders Medication Instructions Recorded Confirmed Calcium Carb/Magnesium Ox,Carb 2 tab PO DAILY 06/23/13 09/30/21 [Doroteo-Mag Tablet Chewable] Cholecalciferol (Vitamin D3) [D3 5,000 unit PO DAILY 06/23/13 09/30/21 Dots] Multivitamin [Multi-Vitamin Daily] 3 tab PO QAM 06/23/13 09/30/21 Middleton-3 Fatty Acids [Middleton-3] 2,000 mg PO QAM 06/23/13 09/30/21 Thyroid,Pork [Nature-Throid] 16.25 mg PO QAM 06/23/13 10/08/21 Ubidecarenone [Co Q-10] 10 mg PO DAILY 06/23/13 09/30/21 resveratroL [Resveratrol] 100 mg PO QAM 06/23/13 09/30/21 Ferrous Sulfate 325 mg PO DAILY #15 tablet 08/14/17 09/30/21 Lactobacillus Acidophilus 1 each PO DAILY 08/14/17 09/30/21 [Acidophilus] Acetaminophen [Tylenol Arthritis] 2 tab PO TID 09/30/21 09/30/21 Ascorbic Acid [Vitamin C] 500 mg PO DAILY 09/30/21 09/30/21 Aspirin EC [Ecotrin] 81 mg PO DAILY 09/30/21 09/30/21 Astaxanthin 4 mg PO DAILY 09/30/21 09/30/21 Atorvastatin Calcium [Lipitor] 80 mg PO DAILY 09/30/21 09/30/21 Cabergoline [Dostinex] 0.5 mg PO ONCE 09/30/21 09/30/21 Chlorthalidone 25 mg PO DAILY 09/30/21 10/08/21 Proteolytic Enzyme 1 tab PO DAILY 09/30/21 09/30/21 Thymus Gland,Calf [Thymus] 2 tab PO DAILY 09/30/21 09/30/21 Tolterodine Tartrate [Detrol LA] 4 mg PO DAILY 09/30/21 09/30/21 - Allergies Allergies/Adverse Reactions: Allergies Allergy/AdvReac Type Severity Reaction Status Date / Time No Known Drug Allergies Allergy Verified 01/31/18 12:19 Review of Systems - Constitutional Constitutional: denies: Fatigue, Fever, Weakness, Poor appetite, Night sweats - Eyes Eyes: reports: Corrective lenses. denies: Pain, Irritation, Amaurosis - Ears, Nose & Throat Ears, Nose & Throat: denies: Ear pain, Hearing loss, Hearing aids, Nasal discharge, Nosebleeds - Cardiovascular Cariovascular: denies: Irregular heart rate, Palpitations, Chest pain, Lightheadedness, Syncope, Decr. exercise tolerance - Respiratory Respiratory: denies: Cough, Sputum production, Wheezing - Gastrointestinal Gastrointestinal: denies: Abdominal pain, Abdominal distention, Constipation, Change in bowel habits - Genitourinary Genitourinary: reports: Frequency, Urgency - Musculoskeletal Musculoskeletal: reports: Joint pain (left hip) - Integumentary Integumentary: reports: Dryness - Neurological Neurological: denies: General weakness, Focal weakness, Headache - Endocrine Endocrine: denies: Polyuria, Polydypsia - Hematologic/Lymphatic Hematologic/Lymphatic: reports: Anemia - All Other Systems All Other Systems: reports: Reviewed and negative Exam - Vital Signs Reviewed Vital Signs: Yes Vital Signs: Vital Signs x48h Temp Pulse Resp BP Pulse Ox 10/08/21 12:26 36.5 C 66 18 123/65 95 10/08/21 12:15 36.4 C L 66 18 124/68 96 10/08/21 12:10 36.4 C L 66 18 124/63 99 10/08/21 12:03 36.4 C L 65 11 L 119/63 99 10/08/21 11:56 36.4 C L 64 10 L 116/60 96 10/08/21 07:31 37.1 C 73 18 150/70 H 97 - Physical Exam General Appearance: positive: No acute distress Eyes Bilateral: positive: Normal inspection ENT: positive: ENT inspection nml, No signs of dehydration Neck: positive: Nml inspection Respiratory: positive: Chest non-tender, No respiratory distress, Breath sounds nml Cardiovascular: positive: Regular rate & rhythm, No murmur, No gallop Abdomen: positive: Non-tender, No organomegaly, Nml bowel sounds Back: positive: Nml inspection, CVA tenderness (R) Skin: positive: Color nml, No rash, Dry Extremities: positive: Non-tender Neurologic/Psychiatric: positive: Oriented x3, CN's nml (2-12) Conclusion/Plan - Problem List (1) Hypertension Conclusion/Plan: Plan is to manage pt's chronic HTN with home medications. Qualifiers: Hypertension type: unspecified Qualified Code(s): I10 - Essential (primary) hypertension (2) Observation after surgery Conclusion/Plan: Pt is sitting up in bed and talking to family appropriately. No signs of distress at this moment. Will continue to monitor v/s and for any discomfort.
[2021-10-08] MEDS: SODIUM CHLORIDE FLUSH 0.9% 10 ML SYRINGE IVP SCH ×3 (13:27→23:51)
[2021-10-08] MEDS: ethyl alcohoL 62% SWAB AMPULE NAS SCH ×2 (13:27→22:08)
[2021-10-08] MEDS: NS W/20 MEQ KCL 1,000 ML IV SCH ×2 (13:36→23:50)
--- NOTE | 2021-10-08 13:37 | ANESTHESIA POST OP EVALUATION ---
Anesthesia Post Eval - Post Anesthesia Eval Vitals: Last Vital Signs Temp 36.2 C L 10/08/21 13:00 Pulse 70 10/08/21 13:00 Resp 18 10/08/21 13:00 BP 134/62 H 10/08/21 13:00 Pulse Ox 93 10/08/21 13:00 CV Function Including HR & BP: Stable Pain Control: Satisfactory Nausea & Vomiting: Negative Mental Status: Baseline Respiratory Status: Airway Patent Hydration Status: Satisfactory Anesthesia Complications: None
[2021-10-08] MEDS: ACETAMINOPHEN 500 MG TABLET PO SCH ×2 (17:55→23:49)
[2021-10-08] MEDS: DOCUSATE SODIUM 100 MG CAPSULE PO PRN (19:54)
[2021-10-08] MEDS: ASPIRIN EC 81 MG TABLET PO SCH (22:07)
[2021-10-08] MEDS: CELECOXIB 100 MG CAPSULE PO SCH (22:08)
[2021-10-09] MEDS: ACETAMINOPHEN 500 MG TABLET PO SCH ×2 (05:35→11:34)
--- NOTE | 2021-10-09 07:40 | PROVIDER PROGRESS NOTE ---
Subjective - General Procedure Date: 10/08/21 Post Op Days: 1 Procedure Performed: Left total hip arthroplasty - Review of Systems General: negative: Fever, Fatigue Pulmonary: negative: Shortness of breath Cardiovascular: negative: Chest pain Musculoskeletal: positive: Joint pain (Left hip pain). negative: Leg pain, Foot pain All Other Systems: positive: Reviewed and negative Objective - Patient Data Reviewed Vital Signs: Yes Vital Signs: Vital Signs x48h Temp Pulse Pulse Resp BP Pulse Ox 10/09/21 05:30 36.5 C 74 18 124/62 94 10/08/21 23:46 36.3 C L 75 16 115/59 L 99 Weight: Weight 10/07/21 10/08/21 10/09/21 23:59 23:59 23:59 Weight (kg) 55.7 kg Intake & Output: Intake and Output Totals x24h 10/07/21 10/08/21 10/09/21 23:59 23:59 23:59 Intake Total 1390 50 Output Total 750 Balance 640 50 - Lab Results Other Lab Results: Lab Results x24hrs 10/08/21 Range/Units 08:03 POC Whole Bld Glucose 86 (70 - 100) mg/dL - Imaging Results Radiology Imaging: positive: Final report received, EMP read indepedently Imaging Results Comments: AP of pelvis taken on 10/08/2021 which shows post-operative changes following left total hip arthroplasty. No acute fractures or dislocations. Good anatomic alignment of the left hip. - Current Medications Current Medications: Current Medications Generic Name Dose Route Start Last Admin Trade Name Freq PRN Reason Stop Dose Admin Acetaminophen 1,000 mg 10/08/21 16:30 10/09/21 05:35 Acetaminophen 500 Mg Tablet PO 1,000 mg Q6HR SAL Administration Alcohol 1 amp 10/08/21 09:00 10/08/21 22:08 Ethyl Alcohol 62% Swab Ampule AI 1 amp BID SAL Administration Aspirin 81 mg 10/08/21 21:00 10/08/21 22:07 Aspirin Ec 81 Mg Tablet PO 81 mg BID SAL Administration Celecoxib 200 mg 10/08/21 21:00 10/08/21 22:08 Celecoxib 100 Mg Capsule PO 200 mg BID SAL Administration Docusate Sodium 100 mg 10/08/21 08:28 10/08/21 19:54 Docusate Sodium 100 Mg Capsule PO 100 mg BID PRN Administration Constipation Potassium Chloride/Sodium Chloride 1,000 mls @ 100 mls/hr 10/08/21 14:00 10/08/21 23:50 Normal Saline 0.9% W/20 Meq Kcl IV 100 mls/hr .Q10H SAL Administration Oxycodone HCl 5 mg 10/08/21 08:28 10/08/21 19:54 Oxycodone 5 Mg Tablet PO 5 mg Q6HR PRN Administration PAIN Sodium Chloride 10 ml 10/08/21 09:00 10/08/21 23:51 Sodium Chloride Flush 0.9% 10 Ml Syringe IVP Not Given 0100,0900,1700 SAL - Physical Exam Wound/Incisions: positive: Dressing dry and intact. negative: Drainage, Erythema General Appearance: positive: No acute distress (pleasant), Alert Respiratory: positive: No respiratory distress Skin: positive: Color nml, Warm, Other (ecchymosis anterior to the left hip). negative: Diaphoresis Extremities: positive: Nml appearance (Femoral and siatic nerve function grossly intact). negative: Calf tenderness Neurologic/Psychiatric: positive: Oriented x3 Impression/Plan - Problem List Problem List: 86 year old female with a past medical history to include iron deficency anemia, hypertension, TIA, hypothyroidism and microadenoma of the pituitary who is post op day 1 from a left total hip arthroplasty done at [facility] by Dr. Raul Awan on 10/08/2021. She is recovering well and reports good sleep last night. She worked with physical therapy yesterday. Her pain is controlled with acetaminophen and she has taken 1 oxycodone post-operatively. From an orthopedic perspective she is ready to be discharged pending physical therapy evaluation.
[2021-10-09] MEDS: ASPIRIN EC 81 MG TABLET PO SCH (08:24)
[2021-10-09] MEDS: CELECOXIB 100 MG CAPSULE PO SCH (08:24)
[2021-10-09] MEDS: ethyl alcohoL 62% SWAB AMPULE NAS SCH (08:24)
[2021-10-09] MEDS: DOCUSATE SODIUM 100 MG CAPSULE PO PRN (08:24)
[2021-10-09] MEDS: SODIUM CHLORIDE FLUSH 0.9% 10 ML SYRINGE IVP SCH (08:25)
[2021-10-09] MEDS: NS W/20 MEQ KCL 1,000 ML IV SCH (10:16)
[2021-10-09 13:03] VITALS: BP 120/67
== END 2021-10-09 14:20 | disposition home or self-care (01) ==
LOC: SDS 07:27 → MS3 12:53 → SDS 10-09 14:20
PROVIDERS: ATTEND Orthopaedic Surgery
DX: M16.0 Bilateral primary osteoarthritis of hip (principal); I10 Essential (primary) hypertension; E03.9 Hypothyroidism, unspecified; R32 Unspecified urinary incontinence; Z66 Do not resuscitate
CPT/HCPCS: 27130; 72170; 97116; 97161; 97166; 97530; A9270; C1713; J0690; J3370; J7040; J7120

== ENCOUNTER 2021-10-29 10:31 | Outpatient (CLI) | payer MEDICARE ==
--- NOTE | 2021-10-29 15:20 | Ultrasound Report ---
PROCEDURE: Abdomen Complete INDICATIONS: ELEVATED ALK PHOS TECHNIQUE: Real-time scanning was performed of the abdominal and retroperitoneal organs, with image documentatio n. COMPARISON: None. FINDINGS: Liver: Liver is normal in size and homogeneous in echotexture. Multiple hepatic cysts are noted. Cys t in the right hepatic lobe measures 1.8 x 1.3 x 1.5 cm. Cyst in the left hepatic lobe measures 1.9 x 1.3 x 1.6 cm. Gallbladder: Gallbladder sonographically normal. No gallstones. No gallbladder wall thickening with g allbladder wall measures 1.8 m. No pericholecystic fluid. No sonographic Ledezma sign. Biliary ducts: Extrahepatic bile duct caliber measures 8.1 mm proximally and tapers to 2.5 mm distal ly. Normal is 6-7 mm or less in diameter, or 10 mm or less post-cholecystectomy. Pancreas: Visualized portions of the pancreas are sonographically normal. Spleen: Spleen is normal in size and homogeneous in echotexture. Kidneys: Kidneys are normal in size and echotexture. Right kidney measures 8.0 cm long; left kidney measures 9.8 cm long. No hydronephrosis or nephrolithiasis. No solid masses. Aorta: Visualized aorta is normal in caliber at less than 3 cm. Iliacs: Proximal common iliac arteries are normal in caliber at less than 2.5 cm. IVC: Intrahepatic inferior vena cava is patent. Miscellaneous: No free abdominal fluid. IMPRESSION: 1. Hepatic cysts. 2. Prominence of the common bile duct. Recommend correlation with clinical data to exclude biliary ob struction. If there is clinical concern for biliary obstruction recommended MRCP for additional evalu ation. 3. Otherwise, normal abdominal sonogram. Reviewed by: Rae Parham MD, PhD on 10/29/2021 3:19 PM PDT Approved by: Rae Parham MD, PhD on 10/29/2021 3:19 PM PDT Station ID: [id number]
== END 2021-10-29 10:32 | disposition home or self-care (01) ==
LOC: DI 10:31
PROVIDERS: ATTEND Registered Nurse
DX: R74.8 Abnormal levels of other serum enzymes (principal); K76.89 Other specified diseases of liver; K83.8 Other specified diseases of biliary tract

== ENCOUNTER 2021-11-04 08:00 | Outpatient (CLI) | payer MEDICARE ==
--- NOTE | 2021-11-04 16:53 | XRAY Report ---
PROCEDURE: Hip 2 View LT INDICATIONS: HIP PAIN TECHNIQUE: 2 views of the hip were acquired. COMPARISON: X-ray pelvis, one view, 10/03. X-ray left hip, 2 views, 07/30/2009 22 FINDINGS: Bones: No fractures or dislocations. No suspicious bony lesions. The visualized pelvic ring appear s intact. There is left hip arthroplasty with anatomic alignment. Severe right hip joint degeneratio n is noted. Soft tissues: No suspicious soft tissue calcifications or masses. IMPRESSION: 1. Left hip arthroplasty with prosthesis in anatomic alignment. 2. Severe right hip joint degeneration. Reviewed by: Carlene Galvan MD on 11/04/2021 4:51 PM PDT Approved by: Carlene Galvan MD on 11/04/2021 4:51 PM PDT Station ID: [id number]
== END 2021-11-04 23:59 | disposition home or self-care (01) ==
LOC: DI.WOS 08:00
PROVIDERS: ATTEND Orthopaedic Surgery
DX: Z96.642 Presence of left artificial hip joint (principal); M16.11 Unilateral primary osteoarthritis, right hip

== ENCOUNTER 2021-11-25 08:00 | Outpatient (CLI) | payer MEDICARE ==
--- NOTE | 2021-11-25 14:56 | XRAY Report ---
PROCEDURE: Hip 2 View LT INDICATIONS: LEFT ROLAND TECHNIQUE: 2 views of the hip were acquired. COMPARISON: 11/04/2021 FINDINGS: Bones: Total left hip arthroplasty in good position. No evidence of hardware failure or loosening. Se david right hip joint space narrowing with subchondral sclerosis, marginal osteophytes and subchondral cysts. Generalized osseous decreased mineralization present. Soft tissues: No suspicious soft tissue calcifications or masses. IMPRESSION: 1. Total left hip arthroplasty in good position. 2. Severe right hip osteoarthritis Reviewed by: Jeanmarie Han MD on 11/25/2021 1:54 PM AKDT Approved by: Jeanmarie Han MD on 11/25/2021 1:54 PM AKDT Station ID: [id number]
== END 2021-11-25 23:59 | disposition home or self-care (01) ==
LOC: DI.WOS 08:00
PROVIDERS: ATTEND Orthopaedic Surgery
DX: Z96.642 Presence of left artificial hip joint (principal); M16.12 Unilateral primary osteoarthritis, left hip

== ENCOUNTER 2022-02-25 12:43 | Outpatient (CLI) | payer MEDICARE ==
[2022-02-25 14:44] LABS: BASOPHILS % (AUTO) 0.6 %; EOSINOPHILS # (AUTO) 0.2 10^3/uL (0.0-0.7); EOSINOPHILS % (AUTO) 2.6 %; HCT - HEMATOCRIT 36.7 % (37.0-47.0); HGB - HEMOGLOBIN 11.6 g/dL (12.0-16.0); LYMPHOCYTES % (AUTO) 15.3 %; MEAN CORPUSCULAR HEMOGLOBIN 27.6 pg (27.0-31.0); MEAN CORPUSCULAR HGB CONC 31.6 g/dL (32.0-36.0); MEAN CORPUSCULAR VOLUME 87.4 fL (81.0-99.0); MEAN PLATELET VOLUME 9.7 fL (7.9-10.8); MONOCYTES # (AUTO) 0.5 10^3/uL (0.0-1.0); MONOCYTES % (AUTO) 7.8 %; NEUTROPHILS # (AUTO) 4.9 10^3/uL (1.5-6.6); NEUTROPHILS % (AUTO) 73.4 %; PLT - PLATELET COUNT 307 10^3/uL (130-450); RED CELL DISTRIBUTION WIDTH 25.9 % (12.0-15.0); WHITE BLOOD COUNT 6.7 x10^3/uL (4.8-10.8)
[2022-02-25 15:36] LABS: % IRON SATURATION 14 % (20-50); IRON 50 ug/dL (28-170); TOTAL IRON BINDING CAPACITY 364 ug/dL (250-450); TRANSFERRIN 260 mg/dL (192-382)
== END 2022-02-25 12:44 | disposition home or self-care (01) ==
LOC: LAB.S 12:43
PROVIDERS: ATTEND Registered Nurse
DX: D64.9 Anemia, unspecified (principal)
CPT/HCPCS: 36415; 82728; 83540; 84466; 85025

== ENCOUNTER 2022-03-06 16:07 | Emergency (ER) | payer MEDICARE ==
--- NOTE | 2022-03-06 18:32 | Ultrasound Report ---
PROCEDURE: Duplex Ext Veins Right INDICATIONS: Swelling. TECHNIQUE: Real-time imaging, as well as color and pulse Doppler interrogation, were performed of the lower extr emity deep veins from the inguinal ligament to the popliteal fossa. COMPARISON: None. FINDINGS: The deep veins are normally compressible, and free of intraluminal thrombus. Color and pu lse Doppler demonstrate normal phasic intraluminal flow. There is normal augmentation response to di stal compression maneuver. Incidental tiny Rodriguez's cyst measuring 1.3 cm in maximum diameter. IMPRESSION: Negative duplex ultrasound of the deep venous system of the right lower extremity. No ev idence of acute DVT. Reviewed by: Rickie Henderson MD on 03/06/2022 6:31 PM PDT Approved by: Rickie Henderson MD on 03/06/2022 6:31 PM PDT Station ID: [id number]
--- NOTE | 2022-03-06 19:01 | ED Physician Documentation ---
History of Present Illness - Stated complaint Stated Complaint: R LEG SWELLING - Chief complaint Chief Complaint: Ext Problem - History obtained from History obtained from: Patient - History of Present Illness Timing: Today Pain level max: 0 Pain level now: 0 - Additonal information Additional information: 87 year old female is several months s/p a L THR. She states that she was at physical therapy today and the physical therapist noted that her right ankle was more swollen than usual so they sent her here to rule out DVT. The patient has no calf pain or tenderness. No other leg swelling. Nothing makes it better or worse. The patient states she herself did not even notice any swelling that was significantly different from the other side. No chest pain. No shortness of breath. 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 - Present Medications Home Medications: Ambulatory Orders Medication Instructions Recorded Confirmed Calcium Carb/Magnesium Ox,Carb 2 tab PO DAILY 06/23/13 01/09/22 [Doroteo-Mag Tablet Chewable] Cholecalciferol (Vitamin D3) [D3 5,000 unit PO DAILY 06/23/13 01/09/22 Dots] Multivitamin [Multi-Vitamin Daily] 3 tab PO QAM 06/23/13 01/09/22 [place]-3 Fatty Acids [[place]-3] 2,000 mg PO QAM 06/23/13 01/09/22 Thyroid,Pork [Nature-Throid] 16.25 mg PO QAM 06/23/13 01/09/22 Ubidecarenone [Co Q-10] 10 mg PO DAILY 06/23/13 01/09/22 resveratroL [Resveratrol] 100 mg PO QAM 06/23/13 01/09/22 Ferrous Sulfate 325 mg PO DAILY #15 tablet 08/14/17 01/09/22 Lactobacillus Acidophilus 1 each PO DAILY 08/14/17 01/09/22 [Acidophilus] Acetaminophen [Tylenol Arthritis] 2 tab PO TID 09/30/21 01/09/22 Ascorbic Acid [Vitamin C] 500 mg PO DAILY 09/30/21 01/09/22 Aspirin EC [Ecotrin] 81 mg PO DAILY 09/30/21 01/09/22 Astaxanthin 4 mg PO DAILY 09/30/21 01/09/22 Atorvastatin Calcium [Lipitor] 80 mg PO DAILY 09/30/21 01/09/22 Cabergoline [Dostinex] 0.5 mg PO ONCE 09/30/21 01/09/22 Chlorthalidone 25 mg PO DAILY 09/30/21 01/09/22 Proteolytic Enzyme 1 tab PO DAILY 09/30/21 01/09/22 Thymus Gland,Calf [Thymus] 2 tab PO DAILY 09/30/21 01/09/22 Tolterodine Tartrate [Detrol LA] 4 mg PO DAILY 09/30/21 01/09/22 - Allergies Allergies/Adverse Reactions: Allergies Allergy/AdvReac Type Severity Reaction Status Date / Time No Known Drug Allergies Allergy Verified 03/06/22 16:23 - Social History Does the pt smoke?: No Smoking Status: Never smoker Does the pt drink ETOH?: Yes Does the pt have substance abuse?: No - POLST Patient has POLST: No POLST Status: DNR PD ED PE NORMAL - Vitals Vital signs reviewed: Yes - General General: Alert and oriented X 3, No acute distress - HEENT HEENT: Moist mucous membranes - Neck Neck: Supple, no meningeal sign - Cardiac Cardiac: RRR - Respiratory Respiratory: No respiratory distress, Clear bilaterally - Derm Derm: Warm and dry - Extremities Extremities: No calf tenderness / cord, Other (mild swelling R ankle, NVI. ) - Neuro Neuro: Alert and oriented X 3 - Psych Psych: Normal mood, Normal affect Results - Vitals Vitals: Vital Signs - 24 hr 03/06/22 03/06/22 16:20 19:11 Temperature 36.4 C L Heart Rate 61 61 Respiratory 16 18 Rate Blood Pressure 132/100 H 154/77 H O2 Saturation 98 100 Oxygen O2 Source [With Activity] Room air O2 Source Room air - Rads (name of study) RLE duplex US Radiology: Final report received, EMP read contemporaneously, See rad report (no DVT) PD MEDICAL DECISION MAKING - ED course Complexity details: reviewed results, considered differential, d/w patient ED course: Patient is an 87-year-old female who presents to the emergency department with mild right lower extremity swelling today noticed by physical therapy. Was sent here to rule out DVT. Ultrasound is negative. Leg appears normal. Patient is having no symptoms. She does have a small incidental Rodriguez's cyst. We will have her follow-up with her doctor for further care. Patient counseled regarding signs and symptoms for which I believe and urgent re-evaluation would be necessary. Patient with good understanding of and agreement to plan and is comfortable going home at this time This document was made in part using voice recognition software. While efforts are made to proofread this document, sound alike and grammatical errors may occur. Departure - Departure Disposition: 01 Home, Self Care Clinical Impression: Peripheral edema Condition: Good Instructions: ED Leg Swelling Unilateral Follow-Up: your,doctor as needed [Other] Comments: Thankfully there is no evidence of blood clot in your leg. Please follow-up with your doctor for further care. Return if you worsen. FINDINGS: The deep veins are normally compressible, and free of intraluminal thrombus. Color and pulse Doppler demonstrate normal phasic intraluminal flow. There is normal augmentation response to distal compression maneuver. Incidental tiny Rodriguez's cyst measuring 1.3 cm in maximum diameter. IMPRESSION: Negative duplex ultrasound of the deep venous system of the right lower extremity. No evidence of acute DVT. Discharge Date/Time: 03/06/22 19:12
[2022-03-06 19:12] VITALS: BP 154/77
== END 2022-03-06 19:12 | disposition home or self-care (01) ==
LOC: ED 16:07
DX: R60.0 Localized edema (principal); M71.21 Synovial cyst of popliteal space [Baker], right knee; Z96.642 Presence of left artificial hip joint; I10 Essential (primary) hypertension; Z79.82 Long term (current) use of aspirin; Z66 Do not resuscitate
CPT/HCPCS: 99282; 99284

== ENCOUNTER 2022-05-29 09:43 | Outpatient (CLI) | payer MEDICARE ==
[2022-05-29 15:37] LABS: BASOPHILS % (AUTO) 0.6 %; EOSINOPHILS # (AUTO) 0.2 10^3/uL (0.0-0.7); EOSINOPHILS % (AUTO) 3.2 %; HCT - HEMATOCRIT 37.3 % (37.0-47.0); HGB - HEMOGLOBIN 11.9 g/dL (12.0-16.0); LYMPHOCYTES # (AUTO) 1.3 10^3/uL (1.5-3.5); LYMPHOCYTES % (AUTO) 18.6 %; MEAN CORPUSCULAR HEMOGLOBIN 30.5 pg (27.0-31.0); MEAN CORPUSCULAR HGB CONC 31.9 g/dL (32.0-36.0); MEAN CORPUSCULAR VOLUME 95.6 fL (81.0-99.0); MEAN PLATELET VOLUME 9.8 fL (7.9-10.8); MONOCYTES # (AUTO) 0.5 10^3/uL (0.0-1.0); MONOCYTES % (AUTO) 7.6 %; NEUTROPHILS % (AUTO) 69.7 %; PLT - PLATELET COUNT 324 10^3/uL (130-450); WHITE BLOOD COUNT 7.1 x10^3/uL (4.8-10.8)
[2022-05-29 16:21] LABS: % IRON SATURATION 20 % (20-50); IRON 80 ug/dL (28-170); TOTAL IRON BINDING CAPACITY 405 ug/dL (250-450); TRANSFERRIN 289 mg/dL (192-382)
== END 2022-05-29 09:44 | disposition home or self-care (01) ==
LOC: LAB.S 09:43
PROVIDERS: ATTEND Registered Nurse
DX: D64.9 Anemia, unspecified (principal)
CPT/HCPCS: 36415; 82728; 83540; 84466; 85025

== ENCOUNTER 2022-09-19 11:55 | Outpatient (CLI) | payer MEDICARE ==
[2022-09-19 12:14] LABS: BASOPHILS % (AUTO) 0.7 %; EOSINOPHILS # (AUTO) 0.2 10^3/uL (0.0-0.7); EOSINOPHILS % (AUTO) 3.1 %; HCT - HEMATOCRIT 24.1 % (37.0-47.0); LYMPHOCYTES # (AUTO) 0.9 10^3/uL (1.5-3.5); LYMPHOCYTES % (AUTO) 14.7 %; MEAN CORPUSCULAR HGB CONC 28.6 g/dL (32.0-36.0); MEAN CORPUSCULAR VOLUME 83.7 fL (81.0-99.0); MEAN PLATELET VOLUME 8.5 fL (7.9-10.8); MONOCYTES # (AUTO) 0.5 10^3/uL (0.0-1.0); MONOCYTES % (AUTO) 8.9 %; NEUTROPHILS # (AUTO) 4.2 10^3/uL (1.5-6.6); NEUTROPHILS % (AUTO) 72.4 %; PLT - PLATELET COUNT 373 10^3/uL (130-450); RED BLOOD COUNT 2.88 10^6/uL (4.20-5.40); RED CELL DISTRIBUTION WIDTH 15.8 % (12.0-15.0); WHITE BLOOD COUNT 5.8 x10^3/uL (4.8-10.8)
[2022-09-19 12:26] LABS: HGB - HEMOGLOBIN 6.9 g/dL (12.0-16.0)
[2022-09-19 12:27] LABS: ALBUMIN 3.7 g/dL (3.2-5.5); ALBUMIN/GLOBULIN RATIO 1.1 (1.0-2.2); ALKALINE PHOSPHATASE 159 IU/L (42-121); ALT ALANINE AMINOTRANSFERASE 22 IU/L (10-60); AST ASPARTATE AMINOTRANSFERASE 24 IU/L (10-42); BILIRUBIN,TOTAL 0.6 mg/dL (0.2-1.0); BUN - BLOOD UREA NITROGEN 24 mg/dL (6-20); CALCIUM 9.3 mg/dL (8.5-10.3); CARBON DIOXIDE - CO2 25 mmol/L (21-32); CHLORIDE 105 mmol/L (101-111); CHOL/HDL RATIO 1.9 (<4.4); CHOLESTEROL 134 mg/dL; CREATININE 0.8 mg/dL (0.4-1.0); GFR - MDRD 68 (>89); GLUCOSE 101 mg/dL (70-100); HDL CHOLESTEROL 72 mg/dL; LDL CHOLESTEROL,CALCULATED 48 mg/dL; LDL/HDL RATIO 0.7 (<4.4); POTASSIUM 4.1 mmol/L (3.5-5.0); SODIUM 138 mmol/L (135-145); TOTAL PROTEIN 7.1 g/dL (6.7-8.2); TRIGLYCERIDES 69 mg/dL; VLDL CHOLESTEROL 14 mg/dL
[2022-09-19 12:50] LABS: THYROID STIMULATING HORMONE 4.66 uIU/mL (0.34-5.60)
== END 2022-09-19 11:56 | disposition home or self-care (01) ==
LOC: LAB 11:55
PROVIDERS: ATTEND Registered Nurse
DX: I10 Essential (primary) hypertension (principal); E78.5 Hyperlipidemia, unspecified; E03.9 Hypothyroidism, unspecified
CPT/HCPCS: 36415; 80053; 80061; 83721; 84443; 85025

== ENCOUNTER 2022-09-30 11:37 | Outpatient (CLI) | payer MEDICARE ==
[2022-09-30 14:28] LABS: BASOPHILS # (AUTO) 0.1 10^3/uL (0.0-0.1); EOSINOPHILS # (AUTO) 0.3 10^3/uL (0.0-0.7); EOSINOPHILS % (AUTO) 3.3 %; HCT - HEMATOCRIT 34.3 % (37.0-47.0); HGB - HEMOGLOBIN 9.8 g/dL (12.0-16.0); LYMPHOCYTES # (AUTO) 1.3 10^3/uL (1.5-3.5); LYMPHOCYTES % (AUTO) 13.3 %; MEAN CORPUSCULAR HEMOGLOBIN 24.7 pg (27.0-31.0); MEAN CORPUSCULAR HGB CONC 28.6 g/dL (32.0-36.0); MEAN CORPUSCULAR VOLUME 86.4 fL (81.0-99.0); MEAN PLATELET VOLUME 9.6 fL (7.9-10.8); MONOCYTES # (AUTO) 0.7 10^3/uL (0.0-1.0); MONOCYTES % (AUTO) 7.5 %; NEUTROPHILS % (AUTO) 74.6 %; PLT - PLATELET COUNT 471 10^3/uL (130-450); RED BLOOD COUNT 3.97 10^6/uL (4.20-5.40); RED CELL DISTRIBUTION WIDTH 18.4 % (12.0-15.0); WHITE BLOOD COUNT 9.4 x10^3/uL (4.8-10.8)
[2022-09-30 14:44] LABS: SLIDE REVIEW? Indicated
[2022-09-30 15:20] LABS: CALCIUM 9.8 mg/dL (8.5-10.3); CREATININE 0.9 mg/dL (0.4-1.0); POTASSIUM 2.8 mmol/L (3.5-5.0)
[2022-09-30 15:25] LABS: PLATELET ESTIMATE, MANUAL INCREASED (>450,000) (NORMAL); PLATELET MORPHOLOGY NORMAL APPEARANCE (NORMAL)
== END 2022-09-30 11:38 | disposition home or self-care (01) ==
LOC: LAB.S 11:37
PROVIDERS: ATTEND Internal Medicine
DX: D64.9 Anemia, unspecified (principal); R19.7 Diarrhea, unspecified
CPT/HCPCS: 36415; 80048; 85025

== ENCOUNTER 2022-10-06 11:55 | Outpatient (CLI) | payer MEDICARE ==
[2022-10-06 14:54] LABS: ALBUMIN/GLOBULIN RATIO 1.1 (1.0-2.2); BILIRUBIN,TOTAL 0.6 mg/dL (0.2-1.0); CREATININE 0.8 mg/dL (0.4-1.0); POTASSIUM 4.1 mmol/L (3.5-5.0); TOTAL PROTEIN 7.8 g/dL (6.7-8.2)
== END 2022-10-06 11:56 | disposition home or self-care (01) ==
LOC: LAB.S 11:55
PROVIDERS: ATTEND Internal Medicine
DX: D64.9 Anemia, unspecified (principal); R19.7 Diarrhea, unspecified
CPT/HCPCS: 36415; 80053

== ENCOUNTER 2022-11-05 14:33 | Outpatient (CLI) | payer MEDICARE ==
[2022-11-05 19:45] LABS: BASOPHILS % (AUTO) 0.6 %; EOSINOPHILS # (AUTO) 0.2 10^3/uL (0.0-0.7); EOSINOPHILS % (AUTO) 3.1 %; HCT - HEMATOCRIT 32.7 % (37.0-47.0); HGB - HEMOGLOBIN 9.4 g/dL (12.0-16.0); LYMPHOCYTES # (AUTO) 1.2 10^3/uL (1.5-3.5); LYMPHOCYTES % (AUTO) 19.7 %; MEAN CORPUSCULAR HEMOGLOBIN 23.3 pg (27.0-31.0); MEAN CORPUSCULAR HGB CONC 28.7 g/dL (32.0-36.0); MEAN CORPUSCULAR VOLUME 80.9 fL (81.0-99.0); MEAN PLATELET VOLUME 9.1 fL (7.9-10.8); MONOCYTES # (AUTO) 0.5 10^3/uL (0.0-1.0); MONOCYTES % (AUTO) 8.4 %; NEUTROPHILS # (AUTO) 4.2 10^3/uL (1.5-6.6); PLT - PLATELET COUNT 451 10^3/uL (130-450); RED BLOOD COUNT 4.04 10^6/uL (4.20-5.40); RED CELL DISTRIBUTION WIDTH 19.8 % (12.0-15.0); WHITE BLOOD COUNT 6.2 x10^3/uL (4.8-10.8)
[2022-11-05 20:05] LABS: PLATELET ESTIMATE, MANUAL INCREASED (>450,000) (NORMAL); PLATELET MORPHOLOGY NORMAL APPEARANCE (NORMAL); SLIDE REVIEW? Indicated
[2022-11-05 20:10] LABS: ALBUMIN/GLOBULIN RATIO 1.1 (1.0-2.2); ALKALINE PHOSPHATASE 292 IU/L (42-121); ALT ALANINE AMINOTRANSFERASE 42 IU/L (10-60); AST ASPARTATE AMINOTRANSFERASE 46 IU/L (10-42); BILIRUBIN,TOTAL 0.5 mg/dL (0.2-1.0); BUN - BLOOD UREA NITROGEN 19 mg/dL (6-20); CALCIUM 9.5 mg/dL (8.5-10.3); CARBON DIOXIDE - CO2 29 mmol/L (21-32); CHLORIDE 104 mmol/L (101-111); CHOL/HDL RATIO 1.7 (<4.4); CHOLESTEROL 136 mg/dL; CREATININE 0.7 mg/dL (0.4-1.0); GFR - MDRD 80 (>89); GLUCOSE 126 mg/dL (70-100); HDL CHOLESTEROL 79 mg/dL; LDL CHOLESTEROL,CALCULATED 17 mg/dL; LDL/HDL RATIO 0.2 (<4.4); POTASSIUM 3.9 mmol/L (3.5-5.0); SODIUM 137 mmol/L (135-145); TOTAL PROTEIN 7.8 g/dL (6.7-8.2); TRIGLYCERIDES 200 mg/dL; VLDL CHOLESTEROL 40 mg/dL
[2022-11-05 20:19] LABS: THYROID STIMULATING HORMONE 4.65 uIU/mL (0.34-5.60)
== END 2022-11-05 14:34 | disposition home or self-care (01) ==
LOC: LAB.S 14:33
PROVIDERS: ATTEND Registered Nurse
DX: E78.5 Hyperlipidemia, unspecified (principal); E03.9 Hypothyroidism, unspecified; Z79.899 Other long term (current) drug therapy
CPT/HCPCS: 36415; 80053; 80061; 83721; 84443; 85025

== ENCOUNTER 2022-12-18 15:14 | Outpatient (CLI) | payer MEDICARE ==
--- NOTE | 2022-12-18 16:56 | DEXA Report ---
PROCEDURE: Dexa Spine and/or Hip INDICATIONS: POST MENOPAUSAL TECHNIQUE: Dual energy x-ray absorptiometry (DXA) was performed on a [facility] System. Regions measur ed are the AP Spine, femoral neck, and if needed forearm. COMPARISON: 12/08/2018 FINDINGS: Lumbar Spine: Bone Mineral Density 1.084 g/cm/cm,T score -0.8. Since the most recent prior study, there has been a statistically significant decrease in bone mineral density by -2.3 percent. Left Femoral Neck: Bone Mineral Density 0.986 g/cm/cm, T score -0.4. Left Hip: Bone Mineral Density 0.730 g/cm/cm,T score -2.2. Since the most recent prior study, there has been a statistically significant increase in bone mineral density. Left Forearm: Bone Mineral Density 0.294 g/cm/cm, T score -3.8. (T score greater or equal to -1.0: NORMAL) (T score from -1.1 to -2.4: OSTEOPENIA) (T score less than or equal to -2.5 to: OSTEOPOROSIS) Impression: By WHO criteria, this patient has osteoporosis. Interval statistical decrease in bone minteral density of the lumbar spine. Interval statistical incr ease in bone minteral density of the hip. Patients with diagnosis of osteoporosis or osteopenia should have regular bone mineral density assess ment. For those eligible for Medicare, routine testing is allowed once every 2 years. Testing frequ ency can be increased for patients who have rapidly progressing disease or for those who are receivin g medical therapy to restore bone mass. Reviewed by: Ayaan Clark MD on 12/18/2022 4:55 PM PDT Approved by: Ayaan Clark MD on 12/18/2022 4:55 PM PDT Station ID: [id number]
== END 2022-12-18 15:15 | disposition home or self-care (01) ==
LOC: DI 15:14
PROVIDERS: ATTEND Registered Nurse
DX: M81.0 Age-related osteoporosis without current pathological fracture (principal); Z78.0 Asymptomatic menopausal state

== ENCOUNTER 2023-01-04 13:59 | Outpatient (CLI) | payer MEDICARE ==
[2023-01-04 20:16] LABS: ALT ALANINE AMINOTRANSFERASE 11 IU/L (10-60); AST ASPARTATE AMINOTRANSFERASE 22 IU/L (10-42)
== END 2023-01-04 14:00 | disposition home or self-care (01) ==
LOC: LAB.S 13:59
PROVIDERS: ATTEND Registered Nurse
DX: R74.8 Abnormal levels of other serum enzymes (principal)
CPT/HCPCS: 36415; 84450; 84460

== ENCOUNTER 2023-01-27 12:10 | Outpatient (CLI) | payer MEDICARE ==
[2023-01-27 14:47] LABS: BASOPHILS # (AUTO) 0.1 10^3/uL (0.0-0.1); EOSINOPHILS # (AUTO) 0.1 10^3/uL (0.0-0.7); EOSINOPHILS % (AUTO) 1.6 %; HCT - HEMATOCRIT 32.2 % (37.0-47.0); HGB - HEMOGLOBIN 9.4 g/dL (12.0-16.0); LYMPHOCYTES % (AUTO) 14.6 %; MEAN CORPUSCULAR HEMOGLOBIN 22.9 pg (27.0-31.0); MEAN CORPUSCULAR HGB CONC 29.2 g/dL (32.0-36.0); MEAN CORPUSCULAR VOLUME 78.5 fL (81.0-99.0); MEAN PLATELET VOLUME 8.9 fL (7.9-10.8); MONOCYTES # (AUTO) 0.5 10^3/uL (0.0-1.0); MONOCYTES % (AUTO) 6.4 %; NEUTROPHILS # (AUTO) 5.3 10^3/uL (1.5-6.6); NEUTROPHILS % (AUTO) 76.3 %; PLT - PLATELET COUNT 420 10^3/uL (130-450); RED CELL DISTRIBUTION WIDTH 19.9 % (12.0-15.0)
[2023-01-27 15:38] LABS: CALCIUM 10.2 mg/dL (8.5-10.3); CREATININE 0.7 mg/dL (0.6-1.3); POTASSIUM 3.7 mmol/L (3.5-4.5)
== END 2023-01-27 12:11 | disposition home or self-care (01) ==
LOC: LAB.S 12:10
PROVIDERS: ATTEND Internal Medicine
DX: D64.9 Anemia, unspecified (principal)
CPT/HCPCS: 36415; 80048; 82607; 82728; 83540; 84466; 85025

== ENCOUNTER 2023-02-22 08:00 | Outpatient (CLI) | payer MEDICARE ==
--- NOTE | 2023-02-22 14:28 | XRAY Report ---
PROCEDURE: Hip 2 View RT INDICATIONS: RIGHT HIP PAIN TECHNIQUE: 2 views of the hip were acquired. COMPARISON: None. FINDINGS: Bones: Severe degenerative changes of the right knee with complete loss of the joint space, subchond ral sclerosis, subchondral cystic changes, and destruction of the articular surface. Status post left total hip replacement. Soft tissues: No suspicious soft tissue calcifications or masses. IMPRESSION: Severe osteoarthritis of the right hip. Reviewed by: Lennox Claudio on 02/22/2023 2:26 PM PDT Approved by: Lennox Claudio on 02/22/2023 2:26 PM PDT Station ID: [id number]
== END 2023-02-22 23:59 | disposition home or self-care (01) ==
LOC: DI.WOS 08:00
PROVIDERS: ATTEND Orthopaedic Surgery
DX: M16.11 Unilateral primary osteoarthritis, right hip (principal)

== ENCOUNTER 2023-03-15 14:19 | Outpatient (CLI) | payer MEDICARE ==
[2023-03-15 20:31] LABS: HCT - HEMATOCRIT 36.6 % (37.0-47.0); HGB - HEMOGLOBIN 11.1 g/dL (12.0-16.0)
== END 2023-03-15 14:20 | disposition home or self-care (01) ==
LOC: LAB.S 14:19
PROVIDERS: ATTEND Registered Nurse
DX: D64.9 Anemia, unspecified (principal)
CPT/HCPCS: 36415; 85014; 85018

== ENCOUNTER 2023-04-20 11:08 | Outpatient (CLI) | payer MEDICARE ==
[2023-04-20 14:35] LABS: BASOPHILS # (AUTO) 0.1 10^3/uL (0.0-0.1); BASOPHILS % (AUTO) 1.2 %; EOSINOPHILS # (AUTO) 0.2 10^3/uL (0.0-0.7); EOSINOPHILS % (AUTO) 3.4 %; HCT - HEMATOCRIT 40.4 % (37.0-47.0); HGB - HEMOGLOBIN 12.8 g/dL (12.0-16.0); LYMPHOCYTES # (AUTO) 0.8 10^3/uL (1.5-3.5); MEAN CORPUSCULAR HEMOGLOBIN 29.7 pg (27.0-31.0); MEAN CORPUSCULAR HGB CONC 31.7 g/dL (32.0-36.0); MEAN CORPUSCULAR VOLUME 93.7 fL (81.0-99.0); MEAN PLATELET VOLUME 9.7 fL (7.9-10.8); MONOCYTES # (AUTO) 0.5 10^3/uL (0.0-1.0); MONOCYTES % (AUTO) 7.6 %; NEUTROPHILS # (AUTO) 4.4 10^3/uL (1.5-6.6); NEUTROPHILS % (AUTO) 74.5 %; PLT - PLATELET COUNT 333 10^3/uL (130-450); RED BLOOD COUNT 4.31 10^6/uL (4.20-5.40); RED CELL DISTRIBUTION WIDTH 21.6 % (12.0-15.0); WHITE BLOOD COUNT 5.9 x10^3/uL (4.8-10.8)
[2023-04-20 14:36] LABS: SLIDE REVIEW? Indicated
[2023-04-20 15:08] LABS: FERRITIN 531.3 ng/mL (11.0-306.8)
[2023-04-20 15:10] LABS: PLATELET ESTIMATE, MANUAL NORMAL (130-450,000) (NORMAL); PLATELET MORPHOLOGY NORMAL APPEARANCE (NORMAL); RBC MORPHOLOGY (MULTIPLE) 3+ ANISOCYTOSIS (NORMAL)
[2023-04-20 15:12] LABS: CALCIUM 10.8 mg/dL (8.5-10.3); CREATININE 0.7 mg/dL (0.6-1.3); POTASSIUM 3.5 mmol/L (3.5-4.5)
== END 2023-04-20 11:09 | disposition home or self-care (01) ==
LOC: LAB.S 11:08
PROVIDERS: ATTEND Registered Nurse
DX: Z01.812 Encounter for preprocedural laboratory examination (principal); D64.9 Anemia, unspecified
CPT/HCPCS: 36415; 80048; 82728; 83540; 84466; 85025

== ENCOUNTER 2023-05-04 11:38 | Outpatient (CLI) | payer MEDICARE ==
[2023-05-04 15:25] LABS: BASOPHILS # (AUTO) 0.1 10^3/uL (0.0-0.1); BASOPHILS % (AUTO) 0.9 %; EOSINOPHILS # (AUTO) 0.1 10^3/uL (0.0-0.7); EOSINOPHILS % (AUTO) 2.4 %; HCT - HEMATOCRIT 39.2 % (37.0-47.0); HGB - HEMOGLOBIN 12.6 g/dL (12.0-16.0); LYMPHOCYTES # (AUTO) 0.9 10^3/uL (1.5-3.5); LYMPHOCYTES % (AUTO) 15.8 %; MEAN CORPUSCULAR HEMOGLOBIN 30.4 pg (27.0-31.0); MEAN CORPUSCULAR HGB CONC 32.1 g/dL (32.0-36.0); MEAN CORPUSCULAR VOLUME 94.7 fL (81.0-99.0); MEAN PLATELET VOLUME 9.4 fL (7.9-10.8); MONOCYTES # (AUTO) 0.5 10^3/uL (0.0-1.0); NEUTROPHILS # (AUTO) 4.2 10^3/uL (1.5-6.6); NEUTROPHILS % (AUTO) 71.7 %; PLT - PLATELET COUNT 272 10^3/uL (130-450); RED BLOOD COUNT 4.14 10^6/uL (4.20-5.40); RED CELL DISTRIBUTION WIDTH 19.3 % (12.0-15.0); WHITE BLOOD COUNT 5.8 x10^3/uL (4.8-10.8)
== END 2023-05-04 11:39 | disposition home or self-care (01) ==
LOC: LAB.S 11:38
PROVIDERS: ATTEND Registered Nurse
DX: D50.9 Iron deficiency anemia, unspecified (principal)
CPT/HCPCS: 36415; 85025

== ENCOUNTER 2023-05-18 10:34 | Outpatient (CLI) | payer MEDICARE | END 2023-05-18 10:35 | disposition home or self-care (01) | LOC: LAB.S 10:34 | PROVIDERS: ATTEND Registered Nurse | DX: Z01.818 Encounter for other preprocedural examination (principal); D64.9 Anemia, unspecified | CPT/HCPCS: 36415; 85018 ==

== ENCOUNTER 2023-05-26 09:24 | Outpatient (CLI) | payer MEDICARE ==
[2023-05-26 15:17] LABS: BASOPHILS # (AUTO) 0.1 10^3/uL (0.0-0.1); BASOPHILS % (AUTO) 0.7 %; EOSINOPHILS # (AUTO) 0.2 10^3/uL (0.0-0.7); EOSINOPHILS % (AUTO) 2.2 %; HCT - HEMATOCRIT 40.1 % (37.0-47.0); HGB - HEMOGLOBIN 12.8 g/dL (12.0-16.0); LYMPHOCYTES # (AUTO) 1.1 10^3/uL (1.5-3.5); LYMPHOCYTES % (AUTO) 16.4 %; MEAN CORPUSCULAR HEMOGLOBIN 31.8 pg (27.0-31.0); MEAN CORPUSCULAR HGB CONC 31.9 g/dL (32.0-36.0); MEAN CORPUSCULAR VOLUME 99.8 fL (81.0-99.0); MEAN PLATELET VOLUME 9.6 fL (7.9-10.8); MONOCYTES # (AUTO) 0.6 10^3/uL (0.0-1.0); MONOCYTES % (AUTO) 8.1 %; NEUTROPHILS % (AUTO) 72.5 %; PLT - PLATELET COUNT 300 10^3/uL (130-450); RED BLOOD COUNT 4.02 10^6/uL (4.20-5.40); RED CELL DISTRIBUTION WIDTH 16.8 % (12.0-15.0); WHITE BLOOD COUNT 6.9 x10^3/uL (4.8-10.8)
== END 2023-05-26 09:25 | disposition home or self-care (01) ==
LOC: LAB.S 09:24
PROVIDERS: ATTEND Registered Nurse
DX: Z01.818 Encounter for other preprocedural examination (principal)
CPT/HCPCS: 36415; 85025

== ENCOUNTER 2023-06-02 10:03 | Day surgery (SDC) | payer MEDICARE ==
[2023-06-02] MEDS ORDERED: ACETAMINOPHEN 500 MG TABLET PO ONE (10:10)
[2023-06-02] MEDS ORDERED: CELECOXIB 100 MG CAPSULE PO ONE (10:10)
[2023-06-02] MEDS ORDERED: ceFAZolin 2 GM VIAL ONE (10:10)
[2023-06-02] MEDS ORDERED: DEXAMETHASONE 10 MG/ML VIAL ONE (10:10)
[2023-06-02] MEDS ORDERED: LACTATED RINGERS 1,000 ML IV ONE (10:22)
[2023-06-02] MEDS ORDERED: BUPIVACAINE 0.25% PF 30 ML VIAL ONE (10:47)
[2023-06-02] MEDS ORDERED: VANCOMYCIN 1 GM VIAL ONE (10:47)
[2023-06-02] MEDS ORDERED: BUPIVACAINE 0.5% PF 10 ML VIAL ONE (11:08)
[2023-06-02] MEDS ORDERED: PROPOFOL 500 MG/50 ML 500 MG/50 ML VIAL ONE (11:09)
[2023-06-02 11:23] LABS: CALCIUM 9.9 mg/dL (8.5-10.3); CREATININE 0.6 mg/dL (0.6-1.3); POTASSIUM 3.3 mmol/L (3.5-4.5)
--- NOTE | 2023-06-02 11:35 | ANESTHESIA ---
Pre-Anesthesia VS, & Labs - Diagnosis R OA - Procedure R ROLAND Vital Signs: Temp Pulse Resp BP Pulse Ox O2 Flow Rate 36.8 C 57 L 12 134/76 H 96 06/02/23 10:26 06/02/23 10:26 06/02/23 10:26 06/02/23 10:06/02/23 10:26 Height: 5 ft Weight (kg): 48.99 kg Body Mass Index: 21.1 BMI Classification: Normal - NPO >8 hours - Is Patient ?: No - Lab Results Current Lab Results: Laboratory Tests 06/02/23 11:01: Sodium 135, Potassium 3.3 L, Chloride 97 L, Carbon Dioxide 32, Anion Gap 6.0, BUN 27 H, Creatinine 0.6, Estimated GFR (MDRD) 95, Glucose 70 L, Calcium 9.9 Fish Bones: 06/02/23 11:01 Home Medications and Allergies Home Medications: Ambulatory Orders Levothyroxine [Synthroid] 75 mcg PO QDAC 05/25/23 RX: Calcium Carb/Magnesium Ox,Carb [Doroteo-Mag Tablet Chewable] 2 tab PO DAILY 06/23/13 RX: Cholecalciferol (Vitamin D3) [D3 Dots] 5,000 unit PO DAILY 06/23/13 RX: [place]-3 Fatty Acids [[place]-3] 2,000 mg PO QAM 06/23/13 RX: Ubidecarenone [Co Q-10] 10 mg PO DAILY 06/23/13 RX: resveratroL [Resveratrol] 100 mg PO QAM 06/23/13 Acetaminophen [Tylenol Arthritis] 2 tab PO TID 09/30/21 Atorvastatin Calcium [Lipitor] 80 mg PO DAILY 09/30/21 RX: Cabergoline [Dostinex] 0.5 mg PO ONCE 09/30/21 RX: Chlorthalidone 25 mg PO DAILY 09/30/21 Thymus Gland,Calf [Thymus] 2 tab PO DAILY 09/30/21 Tolterodine Tartrate [Detrol LA] 4 mg PO DAILY 09/30/21 Levothyroxine [Synthroid] 75 mcg PO QDAC 05/25/23 Allergies/Adverse Reactions: Allergies Allergy/AdvReac Type Severity Reaction Status Date / Time No Known Drug Allergies Allergy Verified 03/06/22 16:23 Anes History & Medical History - Anesthetic History Anesthesia Complications: reports: No previous complications Family history of Anesthesia Complications: Denies Family history of Malignant Hyperthermia: Denies - Medical History Cardiovascular: reports: Hypertension Pulmonary: reports: None Gastrointestinal: reports: Other Urinary: reports: Incontinence Neuro: reports: Other (hx of pituitary adenoma, stable onmeds, no intervention) Musculoskeletal: reports: Osteoarthritis, Osteoporosis Endocrine/Autoimmune: reports: HyPOthyroidism Blood Disorders: reports: Anemia Skin: reports: Psoriasis Smoking Status: Never smoker Psychosocial: reports: No issues indicated History of Cancer?: Yes - Surgical History General: reports: Colonoscopy Gynecologic: reports: Hysterectomy Orthopedic: reports: Hip replacement Exam General: Alert, Oriented x3, Cooperative Dental: WNL Mouth Openin Fingerbreadth Neck Mobility: Normal Mallampati classification: II Thyromental Distance: 4-6 cm Respiratory: Lungs clear Cardiovascular: Regular rate (severe scoliosis) Plan Anesthesia Type: General (SAB primary, with GETA as back-up), Spinal, Fascia Iliaca Block Consent for Procedure(s) Verified and Reviewed: Yes Code Status: Attempt Resuscitation ASA classification: 3-Severe systemic disease Is this case an emergency?: Yes
[2023-06-02] MEDS ORDERED: TRANEXAMIC ACID 1,000 MG/10 ML VIAL ONE (12:18)
[2023-06-02] MEDS ORDERED: fentaNYL 100 MCG/2 ML VIAL ONE (12:20)
[2023-06-02] MEDS ORDERED: VANCOMYCIN 1 GM VIAL MC ONE (14:07)
[2023-06-02] MEDS ORDERED: HYDROGEN PEROXIDE 3% 473 ML BOTTLE TOP ONE (14:08)
--- NOTE | 2023-06-02 14:29 | OPERATIVE REPORT ---
Operative Report - General Procedure Date: 06/02/23 Planned Procedure: Right total hip replacement Pre-Op Diagnosis: Severe osteoarthritis right hip Procedure Performed: Right total hip replacement:[employer] #15 Palacos Antibiotic cemented Synergy stem, 56 mm R3 acetabular cup, dual mobility acetabular liner with 44 mm head, single 5 mm acetabular screw Post Op Diagnosis: Same as preoperative diagnosis - Procedure Note Primary Surgeon: Raul Awan MD Secondary Surgeon: Konstantin Watson MD, Merna AMES Anesthesia Provider: Cristin Escobedo CRNA Anesthesia Technique: Regional block, Spinal Estimated Blood Loss (mL): 200 Indications: This is an 88-year-old woman, relatively healthy who had a previous total hip on the left side for bilateral hip osteoarthritis. She has had favorable outcome with her left hip but is markedly limited in standing and walking activities because of pain in her right hip area, groin and upper thigh. This has been a progressive problem for a number of years and she is to the point that nearly every step hurts. She desires pain relief and improved ability to do walking activities. She did have painful and limited motion of the right hip, positive Stinchfield and FADIR test, under anesthesia she also had a hip flexion contracture of the right hip. Her x-rays showed advanced osteoarthritis of the right hip with bone loss to the acetabulum and femoral head area. She had deformity of the femoral head, osteophytes and complete absence of the hip joint space. She has been evaluated medically. An informed consent was obtained for the patient and family with regard to doing a right hip replacement. She does have advanced spinal deformity with scoliosis and pelvic tilt. She does not seem to be symptomatic from her spinal deformity. Findings: She had complete wear of the acetabulum down to the fovea, loss of bone and articular cartilage including the superior acetabular rim. the femoral canal was wide and the cortex was thin. She had complete eburnation of bone surfaces to the femoral head and acetabulum Complications: . None - Other Other Information/Narrative: The patient was brought to the operating room. After satisfactory spinal anesthesia was obtained, the patient was turned to a lateral decubitus position with the right hip facing superiorly. She was secured in the lateral decubitus position on a pegboard with pegs being placed about the pelvis anteriorly and posteriorly an additional 1 just below the chest area. The right hip and right lower extremity were prepped and draped in a sterile manner in the usual fashion. A timeout procedure was performed and the entire operating room team were in agreement. A longitudinal incision was made over the lateral right hip beginning near the vastus lateralis ridge and extending it proximally approximately 3 fingerbreadths above the greater trochanter. The subcutaneous tissue and fascia sherin were split in line with the incision. An initial self-retaining retractor was inserted. The anterior one third of the gluteus medius was released against bone. This was taken down to capsule. The capsule was split, partially removed anteriorly to expose the femoral head. The femoral head was dislocated anteriorly with flexion, adduction and external rotation. A femoral neck osteotomy was performed with a neck cutting guide. Retractors were placed beneath the neck to protect the soft tissues. The femoral head was removed. The acetabulum was exposed with a Cobra retractor posteriorly and inferiorly anterior retractor against bone as well as a posterior retractor against bone. The acetabular bone was deficient and had been worn down to the fovea. No deepening was performed or medialization of the acetabulum. Reaming was done to 55 mm with the acetabular reamers. A 55 trial seem to have a good fit. A 56 R3 acetabular cup was then impacted and had a good fit. This was placed in about 40 degrees of abduction and 20 degrees of anteversion. A 5 mm, 25 mm length acetabular cortical screw was inserted. The Oxinium liner was then inserted into the cup for a dual mobility insert. Next the femoral canal was exposed, placing the right leg in an anterior pocket. A box osteotome was utilized. A canal finder was next utilized. Reaming was carried out progressively to 15 mm where resistance was met from bone. The canal was thoroughly irrigated with pulsatile lavage. A canal plug was inserted. The 15 mm standard offset Synergy component was inserted after Palacos antibiotic cement had been injected and pressurized. The component was stable. A trial reduction was performed with 0 and -3 neck length and was elected to use the -3 neck length as it seemed that the associated with better motion and still excellent stability. The dual mobility head was then impacted. The hip was reduced and found to be stable. Leg length tension seem to be good. Dilute Betadine was inserted for 3 minutes, pulsatile lavage and hydrogen peroxide also were used. 2 g of vancomycin powder were utilized. The deep closure was performed using #1 strata fix suture to reattach the gluteus medius at its myotendinous junction. The fascia sherin was closed with #1 strata fix suture, subcutaneous tissue was closed with 2 oh strata fix, skin was closed with a 3-0 Monocryl subcuticular suture, Dermabond, Mepilex dressing. The patient received a gram of Tranxemic acid and 2 g of Ancef intravenously. The patient tolerated procedure well. A physician assistant vice president was felt to be medically necessary to help with exposure, protection of vital structures, dislocation of hip, wound closure and dressing.
[2023-06-02] MEDS ORDERED: ROPIVACAINE 0.2% PF 10 ML VIAL ONE (14:30)
[2023-06-02] MEDS ORDERED: DEXAMETHASONE 4 MG/ML VIAL ONE (14:31)
[2023-06-02] MEDS ORDERED: SODIUM CHLORIDE FLUSH 0.9% 10 ML SYRINGE IVP PRN (14:48)
[2023-06-02] MEDS ORDERED: ONDANSETRON 4 MG/2 ML VIAL IVP PRN ×2 (14:48→15:12)
[2023-06-02] MEDS ORDERED: DOCUSATE SODIUM 100 MG CAPSULE PO PRN (14:48)
[2023-06-02] MEDS ORDERED: LACTATED RINGERS 950 ML IV ONE ×2 (14:58)
[2023-06-02] MEDS ORDERED: fentaNYL 100 MCG/2 ML VIAL IVP PRN ×2 (15:00→15:12)
[2023-06-02] MEDS ORDERED: ACETAMINOPHEN 500 MG TABLET PO SCH (15:00)
[2023-06-02] MEDS ORDERED: MORPHINE 2 MG/ML CARPUJECT IVP PRN (15:12)
[2023-06-02] MEDS ORDERED: HYDROmorphone 0.5 MG/0.5 ML SYRINGE IVP PRN (15:12)
[2023-06-02] MEDS ORDERED: ATROPINE ABBOJECT 1 MG/10 ML SYRINGE IVP PRN (15:12)
[2023-06-02] MEDS ORDERED: NALOXONE 0.4 MG/ML VIAL IVP PRN (15:12)
[2023-06-02] MEDS ORDERED: ePHEDrine 50 MG/ML VIAL IVP PRN (15:12)
--- NOTE | 2023-06-02 15:24 | ANESTHESIA POST OP EVALUATION ---
Anesthesia Post Eval - Post Anesthesia Eval Vitals: Last Vital Signs Temp 36.0 C L 06/02/23 15:16 Pulse 54 L 06/02/23 15:16 Resp 11 L 06/02/23 15:16 BP 127/65 06/02/23 15:16 Pulse Ox 96 06/02/23 15:16 O2 Flow Rate CV Function Including HR & BP: Stable Pain Control: Satisfactory Nausea & Vomiting: Negative Mental Status: Baseline Respiratory Status: Airway Patent Hydration Status: Satisfactory Anesthesia Complications: None
--- NOTE | 2023-06-02 15:24 | XRAY Report ---
PROCEDURE: Pelvis 1-2V INDICATIONS: post operative imaging TECHNIQUE: 1 view(s) of the pelvis acquired. COMPARISON: X-ray hip 02/22/2023 FINDINGS: Bones: No fractures or dislocations. No suspicious bony lesions. Bilateral hip arthroplasties are present, with the most recent on the right. Hardware is intact witho ut evidence of hardware fracture or periprosthetic lucency to suggest loosening. There is good anatom ic alignment. Soft tissues: Postsurgical changes are present. IMPRESSION: Expected postsurgical change of recent right hip arthroplasty. Reviewed by: Claudia Bourne MD on 06/02/2023 3:23 PM PST Approved by: Claudia Bourne MD on 06/02/2023 3:23 PM PST Station ID: [id number]
[2023-06-02] MEDS ORDERED: LACTATED RINGERS 1,000 ML IV SCH (16:00)
[2023-06-02] MEDS: ACETAMINOPHEN 500 MG TABLET PO SCH ×2 (16:09→20:55)
[2023-06-02] MEDS: NS W/20 MEQ KCL 1,000 ML IV SCH (16:09)
[2023-06-02] MEDS: SODIUM CHLORIDE FLUSH 0.9% 10 ML SYRINGE IVP SCH (16:10)
[2023-06-02] MEDS: ceFAZolin (2G) 2 GM in SODIUM CHLORIDE 0.9% MINIBAG 100 ML IV SCH (18:21)
[2023-06-02] MEDS: ethyl alcohoL 62% SWAB AMPULE NAS SCH (20:56)
[2023-06-02] MEDS: CELECOXIB 100 MG CAPSULE PO SCH (20:56)
[2023-06-02] MEDS: ASPIRIN EC 81 MG TABLET PO SCH (20:56)
[2023-06-02] MEDS: oxyCODONE 5 MG TABLET PO PRN (21:01)
[2023-06-02] MEDS: traMADol 50 MG TABLET PO PRN (23:08)
[2023-06-03] MEDS: SODIUM CHLORIDE FLUSH 0.9% 10 ML SYRINGE IVP SCH ×2 (01:14→08:05)
[2023-06-03] MEDS: ceFAZolin (2G) 2 GM in SODIUM CHLORIDE 0.9% MINIBAG 100 ML IV SCH (01:18)
[2023-06-03] MEDS: ACETAMINOPHEN 500 MG TABLET PO SCH (04:22)
[2023-06-03] MEDS: oxyCODONE 5 MG TABLET PO PRN (04:23)
[2023-06-03] MEDS: NS W/20 MEQ KCL 1,000 ML IV SCH (06:06)
[2023-06-03] MEDS: traMADol 50 MG TABLET PO PRN (06:06)
[2023-06-03] MEDS ORDERED: dexAMETHasone 4 MG TABLET PO SCH (07:00)
[2023-06-03] MEDS ORDERED: LEVOTHYROXINE 75 MCG TABLET PO SCH (08:00)
[2023-06-03] MEDS ORDERED: CABERGOLINE 0.5 MG TABLET PO SCH (08:00)
[2023-06-03] MEDS: ASPIRIN EC 81 MG TABLET PO SCH (08:04)
[2023-06-03] MEDS: ethyl alcohoL 62% SWAB AMPULE NAS SCH (08:05)
[2023-06-03] MEDS: CELECOXIB 100 MG CAPSULE PO SCH (08:09)
[2023-06-03] MEDS ORDERED: FERROUS SULFATE 325 MG TABLET PO SCH (09:00)
[2023-06-03] MEDS ORDERED: ACETAMINOPHEN 325 MG TABLET PO SCH (10:00)
--- NOTE | 2023-06-03 12:28 | PHARMACY PROGRESS NOTE ---
- Best Possible Medication History Admit Date and Time: Processed by: Nursing As the person ultimately responsible for medication therapy, providers are able to order a medication from an existing home medication list in [facility] via the "Reconcile Routine" prior to Confirmation of that medication by network support administrator. Such practice is discouraged except when the physician, in their clinical judgment, deems that a medical need exists for a medication without regard to previous use.
--- NOTE | 2023-06-03 12:50 | PROVIDER PROGRESS NOTE ---
Subjective - General Procedure Date: 06/02/23 Post Op Days: 1 Procedure Performed: Right total hip arthroplasty - Other Other Information/Narrative: alert, sitting in a chair, pleasant She denies chest pain, dyspnea, nausea and emesis She worked with physical therapy and was up to chair today She is awaiting the arrival of her daughter's visit today pain is well-controlled Objective - Patient Data Reviewed Vital Signs: Yes Vital Signs: Vital Signs x48h Temp Pulse Pulse Pulse Pulse Pulse Resp 06/03/23 09:01 88 86 92 81 06/03/23 08:02 36.5 C 76 16 06/03/23 04:52 36.6 C 75 18 BP BP BP BP BP BP Pulse Ox 06/03/23 09:01 160/77 H 146/74 H 147/86 H 136/73 H 06/03/23 08:02 164/83 H 94 06/03/23 04:52 135/61 H 94 Pulse Ox 06/03/23 09:01 94 06/03/23 08:02 06/03/23 04:52 Weight: Weight 06/01/23 06/02/23 06/03/23 23:59 23:59 23:59 Weight (kg) 48.99 kg Intake & Output: Intake and Output Totals x24h 06/01/23 06/02/23 06/03/23 23:59 23:59 23:59 Intake Total 750 1660 Output Total 200 Balance 550 1660 - Lab Results Lab Results: 06/02/23 11:01 Other Lab Results: Lab Results x24hrs 06/02/23 06/02/23 Range/Units 10:54 10:47 POC Whole Bld Glucose 64 L 53 L* (70 - 100) mg/dL - Imaging Results Radiology Imaging: positive: Final report received - Current Medications Current Medications: Current Medications Generic Name Dose Route Start Last Admin Trade Name Freq PRN Reason Stop Dose Admin Acetaminophen 650 mg 06/03/23 10:00 06/03/23 10:32 Acetaminophen 325 Mg Tablet PO 650 mg Q6H SAL Administration Alcohol 1 amp 06/02/23 21:00 06/03/23 08:05 Ethyl Alcohol 62% Swab Ampule AI 1 amp BID SAL Administration Aspirin 81 mg 06/02/23 21:00 06/03/23 08:04 Aspirin Ec 81 Mg Tablet PO 81 mg BID SAL Administration Celecoxib 200 mg 06/02/23 21:00 06/03/23 08:09 Celecoxib 100 Mg Capsule PO 200 mg BID SAL Administration Fentanyl 25 mcg 06/02/23 15:00 06/02/23 22:24 Fentanyl 100 Mcg/2 Ml Vial IVP 25 mcg Q6HR PRN Administration Severe Breakthrough pain(8-10) Ferrous Sulfate 325 mg 06/03/23 09:00 06/03/23 08:10 Ferrous Sulfate 325 Mg Tablet PO 325 mg DAILY SAL Administration Potassium Chloride/Sodium Chloride 1,000 mls @ 75 mls/hr 06/02/23 15:00 06/03/23 06:06 Normal Saline 0.9% W/20 Meq Kcl IV 75 mls/hr .[id number] SAL Administration Levothyroxine Sodium 75 mcg 06/03/23 08:00 06/03/23 08:09 Levothyroxine 75 Mcg Tablet PO 75 mcg QDAC SAL Administration Oxycodone HCl 2.5 mg 06/02/23 14:48 06/03/23 04:23 Oxycodone 5 Mg Tablet PO 2.5 mg Q6HR PRN Administration Severe Breakthrough pain(8-10) Sodium Chloride 10 ml 06/02/23 17:00 06/03/23 08:05 Sodium Chloride Flush 0.9% 10 Ml Syringe IVP 10 ml 0100,0900,1700 SAL Administration Tramadol HCl 50 mg 06/02/23 14:48 06/03/23 06:06 Tramadol 50 Mg Tablet PO 50 mg Q6HR PRN Administration PAIN 5-7 - Physical Exam Comments/Other: alert, oriented x 4, sitting upright in chair, pleasant Dressing is dry and intact without hematoma formation or drainage Femoral and sciatic nerve function intact ABX Reporting Has patient been on IV antibiotics over the past 48 hours?: Yes Impression/Plan - Problem List Problem List: 88-year-old female with past medical history of anemia, gastrointestinal bleed, TIA and pituitary microadenoma as well as hypothyroidism is postoperative day 1 from a right total hip arthroplasty by Dr. Awan at [facility] on 06/02/2022. Her pain is well-controlled she is tolerating diet. She completed physical therapy today with positive effect. She hopes to return home. Plan: - DVT prophylaxis with 81 mg of aspirin twice daily for 6 weeks, SCDs in hospital - Physical and occupational therapy evaluation today and assessment for discharge home - Pain control with scheduled tylenol, celebrex, tramadol and oxycodone as nee ded - Weight bearing as tolerated with front wheeled walker at all times - Follow up with orthopedic clinic in 5 days - Mepilex dressing to remain in place until follow up - Refer to OPS discharge instructions and call the orthopedic office with outstanding questions - Bowel regimen - Normal diet, IV fluids to be discontinued when tolerating oral diet without nausea and emesis - Home medications resumed today
[2023-06-03 13:52] VITALS: BP 128/74; O2SAT 92
== END 2023-06-03 15:00 | disposition home or self-care (01) ==
LOC: SDS 10:03 → MS2 15:00 → MS3 15:27 → SDS 06-03 15:00
PROVIDERS: ATTEND Orthopaedic Surgery
DX: M16.11 Unilateral primary osteoarthritis, right hip (principal)
CPT/HCPCS: 27130; 72170; 80048; 97162; 97166; 97530; A9270; C1713; J3370; J7120; J8540

== ENCOUNTER 2023-06-15 12:35 | Outpatient (CLI) | payer MEDICARE | END 2023-06-15 12:36 | disposition home or self-care (01) | LOC: LAB.S 12:35 | PROVIDERS: ATTEND Registered Nurse | DX: D64.9 Anemia, unspecified (principal) | CPT/HCPCS: 36415; 85018 ==

== ENCOUNTER 2023-06-16 14:12 | Outpatient (CLI) | payer MEDICARE ==
[2023-06-16 19:57] LABS: ABSOLUTE RETICS # AUTO 0.294 10^6/uL (0.020-0.110); BASOPHILS # (AUTO) 0.1 10^3/uL (0.0-0.1); BASOPHILS % (AUTO) 0.6 %; EOSINOPHILS # (AUTO) 0.1 10^3/uL (0.0-0.7); EOSINOPHILS % (AUTO) 1.6 %; HCT - HEMATOCRIT 27.7 % (37.0-47.0); LYMPHOCYTES # (AUTO) 0.7 10^3/uL (1.5-3.5); LYMPHOCYTES % (AUTO) 8.9 %; MEAN CORPUSCULAR HEMOGLOBIN 34.7 pg (27.0-31.0); MEAN CORPUSCULAR HGB CONC 32.5 g/dL (32.0-36.0); MEAN CORPUSCULAR VOLUME 106.9 fL (81.0-99.0); MEAN PLATELET VOLUME 8.3 fL (7.9-10.8); MONOCYTES # (AUTO) 0.7 10^3/uL (0.0-1.0); MONOCYTES % (AUTO) 8.9 %; NEUTROPHILS # (AUTO) 6.5 10^3/uL (1.5-6.6); NEUTROPHILS % (AUTO) 79.6 %; PLT - PLATELET COUNT 576 10^3/uL (130-450); RED BLOOD COUNT 2.59 10^6/uL (4.20-5.40); RED CELL DISTRIBUTION WIDTH 17.8 % (12.0-15.0); RETICULOCYTE COUNT % (AUTO) 11.36 % (0.5-2.3); WHITE BLOOD COUNT 8.1 x10^3/uL (4.8-10.8)
== END 2023-06-16 14:13 | disposition home or self-care (01) ==
LOC: LAB.S 14:12
PROVIDERS: ATTEND Registered Nurse
DX: D64.9 Anemia, unspecified (principal)
CPT/HCPCS: 36415; 81599; 82607; 82728; 82746; 83020; 83540; 84466; 85025; 85045

== ENCOUNTER 2023-07-01 11:22 | Outpatient (CLI) | payer MEDICARE ==
[2023-07-01 14:39] LABS: BASOPHILS # (AUTO) 0.1 10^3/uL (0.0-0.1); BASOPHILS % (AUTO) 0.8 %; EOSINOPHILS # (AUTO) 0.2 10^3/uL (0.0-0.7); EOSINOPHILS % (AUTO) 2.4 %; HCT - HEMATOCRIT 36.8 % (37.0-47.0); HGB - HEMOGLOBIN 11.3 g/dL (12.0-16.0); LYMPHOCYTES # (AUTO) 0.9 10^3/uL (1.5-3.5); LYMPHOCYTES % (AUTO) 12.1 %; MEAN CORPUSCULAR HEMOGLOBIN 32.7 pg (27.0-31.0); MEAN CORPUSCULAR HGB CONC 30.7 g/dL (32.0-36.0); MEAN CORPUSCULAR VOLUME 106.4 fL (81.0-99.0); MEAN PLATELET VOLUME 8.7 fL (7.9-10.8); MONOCYTES # (AUTO) 0.5 10^3/uL (0.0-1.0); MONOCYTES % (AUTO) 6.8 %; NEUTROPHILS # (AUTO) 5.5 10^3/uL (1.5-6.6); NEUTROPHILS % (AUTO) 77.6 %; PLT - PLATELET COUNT 423 10^3/uL (130-450); RED BLOOD COUNT 3.46 10^6/uL (4.20-5.40); RED CELL DISTRIBUTION WIDTH 14.7 % (12.0-15.0); WHITE BLOOD COUNT 7.1 x10^3/uL (4.8-10.8)
== END 2023-07-01 11:23 | disposition home or self-care (01) ==
LOC: LAB.S 11:22
PROVIDERS: ATTEND Registered Nurse
DX: D64.9 Anemia, unspecified (principal)
CPT/HCPCS: 36415; 85025

== ENCOUNTER 2023-07-15 11:15 | Outpatient (CLI) | payer MEDICARE ==
--- NOTE | 2023-07-15 16:59 | XRAY Report ---
PROCEDURE: Hip 2 View RT INDICATIONS: RIGHT TOTAL HIP TECHNIQUE: 2 views of the hip were acquired. COMPARISON: 06/02/2023. FINDINGS: Bones: No fractures or dislocations. No suspicious bony lesions. Status post bilateral total hip ar throplasty. Prosthetic elements are in similar position. No evidence of hardware complication. Alignm ent appears anatomic. Soft tissues: No suspicious soft tissue calcifications or masses. IMPRESSION: Status post bilateral total hip arthroplasty without evidence of hardware complication. Reviewed by: Glendy Hassan MD on 07/15/2023 4:58 PM PST Approved by: Glendy Hassan MD on 07/15/2023 4:58 PM PST Station ID: [id number]
== END 2023-07-15 23:59 | disposition home or self-care (01) ==
LOC: DI.WOS 11:15
PROVIDERS: ATTEND Orthopaedic Surgery
DX: Z47.1 Aftercare following joint replacement surgery (principal); Z96.641 Presence of right artificial hip joint

== ENCOUNTER 2023-09-14 13:35 | Outpatient (CLI) | payer MEDICARE ==
[2023-09-14 20:00] LABS: BASOPHILS # (AUTO) 0.1 10^3/uL (0.0-0.1); BASOPHILS % (AUTO) 0.7 %; EOSINOPHILS # (AUTO) 0.2 10^3/uL (0.0-0.7); EOSINOPHILS % (AUTO) 2.3 %; HCT - HEMATOCRIT 40.9 % (37.0-47.0); LYMPHOCYTES # (AUTO) 1.2 10^3/uL (1.5-3.5); LYMPHOCYTES % (AUTO) 16.2 %; MEAN CORPUSCULAR HEMOGLOBIN 30.2 pg (27.0-31.0); MEAN CORPUSCULAR HGB CONC 31.8 g/dL (32.0-36.0); MEAN CORPUSCULAR VOLUME 95.1 fL (81.0-99.0); MEAN PLATELET VOLUME 9.7 fL (7.9-10.8); MONOCYTES # (AUTO) 0.6 10^3/uL (0.0-1.0); MONOCYTES % (AUTO) 8.3 %; NEUTROPHILS # (AUTO) 5.4 10^3/uL (1.5-6.6); NEUTROPHILS % (AUTO) 72.4 %; PLT - PLATELET COUNT 321 10^3/uL (130-450); RED CELL DISTRIBUTION WIDTH 13.7 % (12.0-15.0); WHITE BLOOD COUNT 7.4 x10^3/uL (4.8-10.8)
== END 2023-09-14 13:36 | disposition home or self-care (01) ==
LOC: LAB.S 13:35
PROVIDERS: ATTEND Registered Nurse
DX: D64.9 Anemia, unspecified (principal)
CPT/HCPCS: 36415; 85025